=== PATIENT | female | born 1985 | race Caucasian/White ===

== ENCOUNTER 2023-11-18 08:45 | Outpatient (RCR) | payer BC, SELFPAY ==
--- NOTE | 2023-09-23 16:40 | PT.OPEX ---
PT [place] Outpatient Eval PT [facility] Outpatient Eval Start: 09/23/23 09:46 Freq: Status: Active Protocol: Document 09/18/23 07:45 AMS (Rec: 09/23/23 16:15 AMS [id number]) E-signed By Mimi Rios PT Physical Therapy Outpatient Evaluation Insurance Information Recert Due Date 11/17/23 Insurance Name Medicaid Medical Diagnosis Cervicalgia Treating Diagnosis Neck pain Thoracic pain Upper back/shoulder pain left and right Muscle weakness Referring CINTHIA Grace Subjective Subjective New patient visit. Pleasant 37-year-old female presents with approximately 1.5 years of left-sided neck, trapezius discomfort that is intermittent - experiences approximately 2 times per week , lasting for 20 minutes. This discomfort causes headaches and is unchanged over the last 1.5 years. Now, over the last month, she experiences similar symptoms on the right, but to a lesser degree. States that she also has some discomfort across her clavicles especially when lying on her side during sleep . Occasional numbness and muscle tension through the left arm. The numbness involves her small digit. Also comments - occasional chest discomfort that she believes may be related to anxiety. She also wonders if this neck discomfort is related to anxiety. She has brought this to the attention of her PCP. Involved in daily yoga, which can be difficult due to some loss in shoulder motion due to tension. No loss in shoulder strength. She is wondering about a pinched nerve. Treatment also includes occasional CBD oil and ibuprofen which provided mild relief. Heat does help. No past injury to her neck or upper extremities. -Onel Coleman, 08/21/23, confirmed by patient Patient is a 37-year-old female who presents to physical therapy with primary concern of chronic bilateral neck/upper back/clavicle pain. The left-sided neck pain started about 2 years ago gradually without injury, right more limited. It come and goes, but is very intense when it does come and will last for an hour or so a few times per week. Has occasional headaches. Pain is localized to the left > right side of her shoulder/base of neck and radiates toward her collar bone L > R and shooting up her neck. Describes weird pressure across collar bone. Holding up her head sometimes feels tiring. Intermittent N/T in left little finger, but this is just occasional. Thinks she has carpal tunnel, sometimes tingling in her R hand as well. Describes limited shoulder ROM with yoga at times and painless popping in the shoulder with movement . Pain characteristics: Sometimes shooting, bilateral upper back near base of neck, radiating toward collarbone; sometimes sharp vs. achey ( collar bone). At rest: 0/10. At worst: 8/10. 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 Does sometimes have intermittent dizziness. Imaging: AP, lateral views of the cervical spine ordered and preliminarily reviewed today. Images show no acute fractures, avulsions, or evidence of spondylolisthesis/ spondylosis. 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 There is in fact slight kyphosis starting at the C4 level. Maintained vertebral height, and patent foramens. -08/21/23, Onel Coleman PMHx: Ban's Social history/current exercise: Yoga for 25 min daily. Tries to walk short distances a few times per week . 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 IR to T6 bilaterally without pain. 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 Tenderness to palpation over bicipital groove on left, R mid-clavicle, and just superior to bicipital groove bilaterally. TTP over T1-T11. No TTP over C1-C7. Functional Test Performed & Score NDI: 10/50 = 20% Quick DASH: 25/100 = 25% Assessment Assessment/Impression Pt is a 37 -year-old female who presents with concerns of intermittent left > right upper trapezius pain and low severity and irritability. Signs and symptoms are likely indicating / consistent with upper trapezius pain. 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 Unable to reproduce occasional N/T into left 5th digit this visit; does not appear to be related to upper trap symptoms (pt noting history of possible carpal tunnel). Patient is appropriate for skilled physical therapy services to address the above deficits. Pt was agreeable with plan of care and goals established. 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 In 6-8 visits: Pt will demonstrate full and pain-free cervical rotation for improved ability to turn head while driving. Pt will report 50% decrease in pain symptoms over course of therapy and <2/10 pain with reaching. Pt will sleep soundly waking 0 -1 times per night for improved sleep quality. Pt will improve Quick DASH and NDI by 15% for significant improvement in symptoms. Coordination/Communication With Referral Source Treatment Plan/Direct Interventions Heat,Joint Mobilization,Manual Therapy,Neuromuscular Re-ed, Self-Care/Home Management, Therapeutic Activities, Therapeutic Exercises Frequency/Duration 1x/week for 6-8 visits Patient Will Be Discharged From Therapy Completion of LTG(s), Independent w/HEP, Independently Progressing Evaluation Billing Untimed Code Treatment Minutes 25 Complexity Low Certification Information Initial Certification Date 09/18/23 Ending Certification Date 11/17/23 Provider Signature Shows Agreement With POC & Medical Necessity Physician Signature & Date Requested Please Sign/Date Here Physician Comment/Change : Physician NPI Number #
== END 2024-03-17 23:59 | disposition home or self-care (01) ==
PROVIDERS: PCP Family Medicine; Visit Provider Physician Assistant Surgical
DX: M54.2 Cervicalgia (principal); M54.6 Pain in thoracic spine; M54.9 Dorsalgia, unspecified; M25.512 Pain in left shoulder; M25.511 Pain in right shoulder; M62.81 Muscle weakness (generalized); Z51.89 Encounter for other specified aftercare
CPT/HCPCS: 97110; 97140; 97161

== ENCOUNTER 2023-11-25 09:15 | Outpatient (RCR) | payer BC, SELFPAY ==
--- NOTE | 2023-09-18 12:34 | PT.OP2DDNX ---
PT [place] Outpatient 2nd Diagnosis Daily Note PT [facility] Outpatient 2nd Diag Daily Note Start: 09/18/23 07:47 Freq: Status: Active Protocol: Document 09/18/23 07:48 AMS (Rec: 09/18/23 12:33 AMS [id number]) E-signed By Mimi Rios, PT PT OP 2nd Diagnosis Daily Note Visit Information Note Type Daily Note,Re-Evaluation Visit Number 1 Insurance Information Recert Due Date 11/17/23 Insurance Name Medicaid Medical Diagnosis Cervicalgia Treating Diagnosis Neck pain Thoracic pain Upper back/shoulder pain left and right Muscle weakness Referring CINTHIA Grace Subjective Subjective New patient visit. Pleasant 37-year-old female presents with approximately 1.5 years of left-sided neck, trapezius discomfort that is intermittent - experiences approximately 2 times per week , lasting for 20 minutes. This discomfort causes headaches and is unchanged over the last 1.5 years. Now, over the last month, she experiences similar symptoms on the right, but to a lesser degree. States that she also has some discomfort across her clavicles especially when lying on her side during sleep . Occasional numbness and muscle tension through the left arm. The numbness involves her small digit. Also comments - occasional chest discomfort that she believes may be related to anxiety. She also wonders if this neck discomfort is related to anxiety. She has brought this to the attention of her PCP. Involved in daily yoga, which can be difficult due to some loss in shoulder motion due to tension. No loss in shoulder strength. She is wondering about a pinched nerve. Treatment also includes occasional CBD oil and ibuprofen which provided mild relief. Heat does help. No past injury to her neck or upper extremities. -Onel Coleman, 08/21/23, confirmed by patient Patient is a 37-year-old female who presents to physical therapy with primary concern of chronic bilateral neck/upper back/clavicle pain. The left-sided neck pain started about 2 years ago gradually without injury, right more limited. It come and goes, but is very intense when it does come and will last for an hour or so a few times per week. Has occasional headaches. Pain is localized to the left > right side of her shoulder/base of neck and radiates toward her collar bone L > R and shooting up her neck. Describes weird pressure across collar bone. Holding up her head sometimes feels tiring. Intermittent N/T in left little finger, but this is just occasional. Thinks she has carpal tunnel, sometimes tingling in her R hand as well. Describes limited shoulder ROM with yoga at times and painless popping in the shoulder with movement . Pain characteristics: Sometimes shooting, bilateral upper back near base of neck, radiating toward collarbone; sometimes sharp vs. achey ( collar bone). At rest: 0/10. At worst: 8/10. At current: 0/ 10 Aggravating factors: Raising her arm above her head, reaching, carrying, heavy peanut shaker, lying on her side, jumping when surprised (will feel shoot of pain), morning worse than evening, turning her head, holding her head up for long periods, driving Easing factors: heat, CBD oil, ibuprofen Previous treatments: none Current functional limitations : Raising her arm above her head, reaching, carrying, lifting weights, heavy peanut shaker, yoga ( downward dog, child's pose), lying on her side, turning her head, driving Red flags: Pt denies hand weakness, faintness, or vision changes. Does sometimes have intermittent dizziness. Imaging: AP, lateral views of the cervical spine ordered and preliminarily reviewed today. Images show no acute fractures, avulsions, or evidence of spondylolisthesis/ spondylosis. 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 There is in fact slight kyphosis starting at the C4 level. Maintained vertebral height, and patent foramens. -08/21/23, Onel Coleman PMHx: Ban's Social history/current exercise: Yoga for 25 min daily. Tries to walk short distances a few times per week . Goals: Decreased pain, improved ROM Home Exercise Home Exercise Compliance Compliant Home Exercise Reviewed Yes Objective Other/Pertinent Objective SPINAL ALIGNMENT/POSTURE: increased thoracic kyphosis, decreased cervical lordosis, forward head CERVICAL AROM (PROM) Flexion: WNL Extension: WNL Right Rotation: 75 deg (75) Left Rotation: 60 deg (75) Right sidebend: Mildly limited Left sidebend: WNL Repeated flexion/extension: no change in symptoms THORACIC ROM Did not assess SHOULDER AROM Full and pain-free. IR to T6 bilaterally without pain. 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 Tenderness to palpation over bicipital groove on left and just superior to bicipital groove bilaterally. TTP over T1-T11. No TTP over C1-C7. Functional Test Performed & Score NDI: 10/50 = 20% Quick DASH: 25/100 = 25% Treatment Precautions/Contraindications Ban's Patient Instructed in Risks/Benefits Yes Therapeutic Exercise Therapeutic Exercise Minutes (minutes) 15 Therapeutic Exercise: To Restore Education provided on findings Functional Status of examination, plan of care, frequency, duration and goals . Patient verbalizes understanding and agrees with plan of care. Patient instructed in initial home exercise program listed below with verbal and tactile cues provided for form. Patient demonstrates understanding with handout provided. Access Code: [email or web address] URL: [email or web address]/ Date: 09/18/2023 Prepared by: Mimi Rios Exercises - Cervical Retraction at Wall - 1 x daily - 7 x weekly - 2- 3 sets - 10 reps - Prone W Scapular Retraction - 1 x daily - 7 x weekly - 2- 3 sets - 10 reps - Seated Upper Trapezius Stretch - 1 x daily - 7 x weekly - 3 sets - 30-60 sec hold Manual Therapy Techniques Manual Therapy Minutes (minutes) 10 Manual Therapy Techniques Soft tissue mobilization to upper trap, paraspinals, and levator scapulae bilaterally to decrease tone and reduce pain. Positive response reported. Treatment Minutes Untimed Code Treatment Minutes 25 Timed Code Treatment Minutes 25 Total Treatment Time 50 Billing Units Manual Therapy Units 1 Therapeutic Exercise Units 1 Re-Evaluation Units 1 Assessment/Impression Assessment/Impression Pt is a 37 -year-old female who presents with concerns of intermittent left > right upper trapezius pain and low severity and irritability. Signs and symptoms are likely indicating / consistent with upper trapezius pain. On exam, patient also demonstrates notable objective findings including full and pain-free shoulder ROM, full and pain- free cervical ROM with exception of mildly decreased L rotation/R sidebending, normal neurological exam, pain with active shoulder elevation, increased tone of upper trap/paraspinals L > R, and decreased deep neck flexor /scapular strength, leading to difficulties with raising her arm above her head, reaching, carrying, lifting weights, heavy peanut shaker, yoga ( downward dog, child's pose), lying on her side, turning her head, driving. Unable to reproduce occasional N/T into left 5th digit this visit. Patient is appropriate for skilled physical therapy services to address the above deficits. Pt was agreeable with plan of care and goals established. Plan of Care Physical Therapy Goals In 2 visits: Pt will demonstrate consistent HEP compliance to ensure progress in reaching established goals during course of care. In 6-8 visits: Pt will demonstrate full and pain-free cervical rotation for improved ability to turn head while driving. Pt will report 50% decrease in pain symptoms over course of therapy and <2/10 pain with reaching. Pt will sleep soundly waking 0 -1 times per night for improved sleep quality. Pt will improve Quick DASH and NDI by 15% for significant improvement in symptoms. Daily Plan of Care Continue per POC Daily Plan of Care Comments Manual prn Upper/middle trap strengthening - progress Deep neck flexor strengthening Check thoracic ROM
== END 2024-03-24 23:59 | disposition home or self-care (01) ==
PROVIDERS: PCP Family Medicine; Visit Provider Podiatrist
DX: M72.2 Plantar fascial fibromatosis (principal); M24.571 Contracture, right ankle; Z51.89 Encounter for other specified aftercare
CPT/HCPCS: 97110; 97140; 97161; 97164

== ENCOUNTER 2024-05-17 09:07 | Outpatient (CLI) | payer BC, SELFPAY ==
--- NOTE | 2024-05-17 09:15 | CRLHL7_ITS ---
For Patients: As a result of the Cures Act, medical imaging exams and procedure reports are released immediately into your electronic medical record. You may view this report before your referring provider. If you have questions, please contact your health care provider. INDICATION: First trimester scan, establish dates. COMPARISON: None. TECHNIQUE: Real-time haq-scale imaging of the pelvis was performed. FINDINGS: Sonographic imaging demonstrates a single living intrauterine gestation. The embryo demonstrates a regular cardiac rate measuring 169 beats per minute. The embryo`s crown-rump length measurement of 3.4 cm corresponds to a gestational age of 10 weeks 2 days with a sonographic due date of 12/11/2024. There is a normal-appearing yolk sac. There are no gross abnormalities noted within the embryo at this early state of development. The gestational sac has a normal appearance. There is no evidence of a perigestational hemorrhage. The amount of fluid within the sac appears appropriate for gestational age. The cervix is closed. The myometrium appears normal. The ovaries are not visualized. There are no suspicious fluid collections noted in the cul-de-sac. IMPRESSION: Single living intrauterine with sonographic gestational age 10 weeks 2 days and sonographic due date of 12/11/2024. Dictated by Santi Hoskins MD @ 05/17/2024 10:20:21 AM (Electronically Signed)
== END 2024-05-17 09:08 | disposition home or self-care (01) ==
LOC: US 09:09
PROVIDERS: PCP Family Medicine; Visit Provider Midwife
DX: Z34.91 Encounter for supervision of normal pregnancy, unspecified, first trimester (principal); Z3A.10 10 weeks gestation of pregnancy
CPT/HCPCS: 76817; 84439; 84443; 86703; 86706; 86803; 86850; 86900; 86901; 87086; 87340

== ENCOUNTER 2024-05-17 10:13 | Outpatient (CLI) | payer BC, SELFPAY | END 2024-05-17 10:14 | disposition home or self-care (01) | PROVIDERS: PCP Family Medicine; Visit Provider Midwife | DX: Z34.91 Encounter for supervision of normal pregnancy, unspecified, first trimester (principal); Z3A.09 9 weeks gestation of pregnancy | CPT/HCPCS: 84439; 84443; 86592; 86703; 86704; 86706; 86762; 86787; 86803; 86850; 86900; 86901; 87086; 87340 ==

== ENCOUNTER 2024-05-18 10:47 | Outpatient (CLI) | payer BC, SELFPAY ==
--- NOTE | 2024-05-18 11:00 | CRLHL7_ITS ---
For Patients: As a result of the Century Cures Act, medical imaging exams and procedure reports are released immediately into your electronic medical record. You may view this report before your referring provider. If you have questions, please contact your health care provider. INDICATION: Nontoxic single thyroid nodule COMPARISON: none TECHNIQUE: Latham scale and color Doppler images were acquired of the thyroid gland. FINDINGS: Thyroid echotexture is heterogeneous. The right lobe measures 5.4 x 2.3 x 2.4 cm and the left lobe measures 4.5 x 1.8 x 1.7 cm in size. Isthmus measures 7 millimeters. Mostly solid slightly hyperechoic nodule inferior pole left thyroid lobe measures 6 x 9 x 8 millimeters, TR 3. Calcification within the right thyroid lobe measures 1 x 3 x 3 millimeters, incidental. Solid and cystic nodule right thyroid lobe measures 7 x 16 x 18 millimeters, TR 3. Solid hypoechoic nodule right thyroid lobe measures 5 x 7 x 8 millimeters, TR 4. The color Doppler images demonstrate increased vascularity. There is no evidence of cervical lymphadenopathy or parathyroid mass. IMPRESSION: Bilateral thyroid nodules. Follow-up in 1 year could be considered. No FNA indicated at this time. Dictated by Santi Hoskins MD @ 05/18/2024 12:10:09 PM (Electronically Signed)
== END 2024-05-18 10:48 | disposition home or self-care (01) ==
LOC: US 10:48
PROVIDERS: PCP Family Medicine; Visit Provider Midwife
DX: E04.1 Nontoxic single thyroid nodule (principal)
CPT/HCPCS: 76536

== ENCOUNTER 2024-06-22 16:06 | Outpatient (CLI) | payer BC, SELFPAY | END 2024-06-22 16:07 | disposition home or self-care (01) | LOC: NFLDREF 06-26 17:03 | PROVIDERS: PCP Family Medicine; Referring Provider Family Medicine; Visit Provider Advanced Practice Midwife | DX: Z20.828 Contact with and (suspected) exposure to other viral communicable diseases (principal) | CPT/HCPCS: 86747 ==

== ENCOUNTER 2024-07-07 15:36 | Outpatient (CLI) | payer BC, SELFPAY | END 2024-07-07 15:37 | disposition home or self-care (01) | LOC: NFLDREF 07-08 05:10 | PROVIDERS: PCP Family Medicine; Referring Provider Family Medicine; Visit Provider Advanced Practice Midwife | DX: Z34.82 Encounter for supervision of other normal pregnancy, second trimester (principal) | CPT/HCPCS: 84443 ==

== ENCOUNTER 2024-07-23 05:11 | Emergency (ER) | payer BC, SELFPAY ==
--- OUTSIDE RECORDS SUMMARY | 2024-07-23 05:13 | XMS_ITS | Clinical Summary ---
Author Organization [place] Address [address] [facility] [place] [address] Care Team Providers Care Osteopathic Neurologist Name Role Phone Kelsi George MD Primary Care Provider [phone] Inez Orosco DO Unavailable [phone] Mayra Recinos APRN MULTIMEDIA DEVELOPER Unavailable [phone] Allergies Active Allergy Reactions Criticality Noted Date Comments Amoxicillin-Pot Clavulanate 11/04/19 10 Amoxicillin-Pot Clavulanate Nausea and Vomiting 08/21/2015 Medications LEVOTHYROXINE SODIUM PO Take 100 mcg by mouth daily Dosage unknown Active cholecalciferol (VITAMIN D3) 125 mcg (5000 units) capsule Take by mouth daily Active Caldwell-3 Fatty Acids (OMEGA 3 PO) Take by mouth daily Active propranolol (INDERAL) 40 MG tablet Take 20 mg by mouth as needed 1 Active Digestive Aids Mixture (PAPAYA ENZYMES PO) Take by mouth daily Active MAGNESIUM PO Take by mouth daily Active UNABLE TO FIND MEDICATION NAME: Insta-Calm - gamma amniobutyric, L-theanine, huperzine A Active Probiotic Product (PROBIOTIC DAILY PO) Take by mouth daily Active UNABLE TO FIND MEDICATION NAME: mohit bond Active UNABLE TO FIND MEDICATION NAME: raspberry leaf tea Active Active Problems Problem Noted Date Diagnosed Date CARDIOVASCULAR SCREENING; LDL GOAL LESS THAN 160 05/20/2010 NO ACTIVE PROBLEMS Immunizations Name Administration Dates Next Due Flu, Unspecified 05/08/2011 HPV Quadrivalent 12/18/2011 HepA, Unspecified 05/27/2011 TD,PF 7+ (Tenivac) 03/21/2007 Typhoid, Unspecified Formulation 05/27/2011 Family History Medical History Relation Comments C.A.D. Father Hypertension Father Lipids Father Neurologic Disorder Father TBI Diabetes Maternal Grandmother Cancer - colorectal Mother dx age 53 Hypertension Mother Asthma No family hx of Breast Cancer No family hx of Cerebrovascular Disease No family hx of Relation Status Comments Father Alive Maternal Grandmother Mother (Age 53) colon cancer Sister Alive Social History Tobacco Use Types Packs/Day Years Used Date Smoking Tobacco: Never Smokeless Tobacco: Never Alcohol Use Standard Drinks/Week Comments No 0 (1 standard drink = 0.6 oz pur e alcohol) Adolescent Education Answer Date Record ed Getting School Help Needed Not on file 04/20 Comments No Sex and Gender Information Value Date Recorded Sex Assigned at Not on file Legal Sex Female 5:07 AM MEAT SMOKER Gender Identity Not on file Sexual Orientation Not on file 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 on file Not on file Not on file Last Filed Vital Signs Vital Sign Reading Time Taken Comments Blood Pressure 102/68 06/03/2022 10:27 AM MEAT SMOKER Pulse 68 06/03/2022 10:27 AM MEAT SMOKER Temperature 36.1 C (97 F) 06/22/2010 6:04 PM MEAT SMOKER Respiratory Rate 16 04/04/2010 1:28 PM CDT Oxygen Saturation 97% 06/03/2022 10:27 AM MEAT SMOKER Inhaled Oxygen Concentration - - Weight 98 kg (216 lb) 06/03/2022 10:27 AM MEAT SMOKER Height 167 cm (5' 5.75) 06/03/2022 10:27 AM MEAT SMOKER Body Mass Index 35.13 06/03/2022 10:27 AM MEAT SMOKER Plan of Treatment Health Maintenance Due Date Last Done Comments ADVANCE CARE PLANNING 1985 ANNUAL REVIEW OF HM ORDERS 1985 HIV SCREENING 2000 HEPATITIS C SCREENING 11/16/2003 HEPATITIS B IMMUNIZATION (1 of 3 - 19+ 3-dose series) 2004 YEARLY PREVENTIVE VISIT 04/04/2011 04/04/2010 HPV IMMUNIZATION (3 - 3-dose series) 03/11/2012 12/18/2011, 03/02/2009 DTAP/TDAP/TD IMMUNIZATION (5 - Td or Tdap) 04/20/2022 04/20/2012, 04/04/2012, 11/01/2007, Additional history exists TSH W/FREE T4 REFLEX 12/18/2022 12/18/2021, 12/18/2021, 08/13/2021, Additional history exists PHQ-2 (once per calendar year) 2023 COVID-19 Vaccine ( season) 2024 02/07/2021 INFLUENZA VACCINE (#1) 2024 05/08/2011 GLUCOSE 12/18/2024 12/18/2021, 11/03/2009 PAP 12/18/2024 12/18/2021, 11/20, 12/18/2021, Additional history exists RSV VACCINE (1 - 1-dose 75+ series) 2060 MENINGITIS IMMUNIZATION Aged Out No l onger eligible based on patient's age to complete this topic Pneumococcal Vaccine: Pediatrics (0 to 5 Years) and At-Risk Patients (6 to 49 Years) Aged Out No longer eligible based on patient's age to complete this topic RSV MONOCLONAL ANTIBODY Aged Out No l onger eligible based on patient's age to complete this topic Procedures Procedure Name Priority Date/Time Associated Diagnosis Comments PAP SMEAR - HIM PATIENT REPORTED Routine 12/18/2021 12:00 PM CDT GLUCOSE Routine 12/18/2021 12:00 AM CDT T4 FREE Routine 12/18/2021 12:00 AM CDT from Last 3 Months or Most Recently Relevant to Health Maintenance Results * PAP Smear - HIM Patient Reported (12/18/2021 12:00 PM CDT) PAP Smear - HIM Patient Reported Negative EXTERNAL LAB 12/18/2021 12:0 0 PM CDT Narrative EXTERNAL LAB - 12/18/2021 12:00 PM CDT [facility] PROGRESS NOTE us Patient Reported LABORATORY Final Result EXTERNAL LAB External Lab * T4 free (12/18/2021 12:00 AM CDT) Thyroxine Free (External) 1.0 0.8 - 1.8 ng/dL NON-INTERFACED (ONBASE SCANS) Blood 12/18/2021 Narrative [facility] - 12/18/2021 12:00 AM CDT Verified by Shemar Gloria on 02/03/2022. Provider Outside LAB - BLOOD ORDERABLES Edited [employer] CARMENEZE PFT NON-INTERFACED (ONBASE SCANS) * Glucose (12/18/2021 12:00 AM CDT) Glucose (External) 78 65 - 99 mg/dL NON-INTERFACED (ONBASE SCANS) Blood 12/18/2021 Narrative [facility] - 12/18/2021 12:00 AM CDT Verified by Shemar Gloria on 02/03/2022. Provider Outside LAB - BLOOD ORDERABLES Edited [employer] BETH PFT NON-INTERFACED (ONBASE SCANS) from Last 3 Months or Most Recently Relevant to Health Maintenance Insurance [place] Care Teams Osteopathic Neurologist Relationship Specialty Start Date End Date Kelsi George MD [address] [place] [address] [place] [address] PCP - General Family Practice 07/31/15 Inez Orosco DO [address] [place] [address] Cardiovascular Disease 02/01/22 Mayra Recinos APRN CNP [address] [id number] Nurse Practitioner Cardiovascular Disease 03/20/22
--- OUTSIDE RECORDS SUMMARY | 2024-07-23 05:13 | XMS_ITS | Clinical Summary ---
Author Organization [employer] [facility] Address [place], [place] [address] Care Team Providers Care Vice President Planning Name Role Phone Ruby Pickering DO Primary Care Provider [phone] Allergies Active Allergy Reactions Criticality Noted Date Comments Amoxicillin-Pot Clavulanate Vomiting,[place] And Vomiting 09/14/2008 Medications Cholecalciferol, Vitamin D3, 2,000 unit tablet Take 5,000 Units by mouth. Active Rylqs-3-WNQ-EPA-Fis h Oil 1,000 mg (120 mg-180 mg) cap Take 1 capsule by mouth. 0 0 Active loratadine (CLARITIN) 10 mg tabletIndications:N juvenal congestion TAKE 1 TABLET BY MOUTH EVERY DAY 90 Tablet 1 1 Active fluticasone (50 mcg per actuation) nasal solution (FLONASE)Indication s:Eustachian tube dysfunction, bilateral,Nasal congestion Inhale 1 [place] to both nostrils two times daily. 48 g 1 3 Active levothyroxine (SYNTHROID) 50 mcg tabletIndications:H ypothyroidism (acquired) Take 1 Tablet (50 mcg) by mouth before breakfast. 60 Tablet 1 4 Active propranoloL (INDERAL) 40 mg tabletIndications:A nxiety Take 1 Tablet (40 mg) by mouth two times daily. 20 Tablet 1 4 Active ondansetron (ZOFRAN ODT) 4 mg disintegrating tabletIndications:M otion sickness, initial encounter Place 1 Tablet (4 mg) on the tongue every 8 hours if needed for Nausea/Vomit ing. 15 Tablet 4 Active Active Problems Patient Care Coordination No te Formatting of this note migh t be different from the original. HIGH RISK hx hypothyroidism - no longer requiring medications Pre BMI 34, excessive weight gain (35 lbs by 38 weeks) POC HgbA1C at initial OB: 5.0 Thyroid lab panel each trimester Early 1 hour GCT declined due to feeling nausea 1 hr GCT in 26-28 weeks 141 and WNL 3 hour GCT Problem Noted Date Diagnosed Date Pap smear for cervical cancer screening 01/19/20 24 Overview (02/20/2024): 01/2009 ASCUS/HPV+ (age 23) 03/02/09 COLP:benign 11, 12, 13, 16 NIL 04/02/19 NIL/HPV negative 01/2024 NIL/HPV negative. Plan: Pap/HPV due 01/2029. Panic disorder 08/08/2021 Depression 08/08/2021 Vitamin D deficiency 07/31/2015 Social phobia 11/08/2008 Generalized anxiety disorder 10/25/2008 Major depressive disorder, single episode, moder ate 10/25/2008 Obesity (BMI 30.0-34.9) Diarrhea Family history of colon cancer in mother Estimated Date of Delivery Comme nts Yes 12/15/2024 Resolved Problems Problem Noted Date Diagnosed Date Resolved Date (normal spontaneous vaginal delivery) 11/23/2018 04/02/2019 Small for gestational age (SGA) 11/23/2018 04/02/2019 Single liveborn, born in hospital, delivered 9 04/02/2019 Meconium in amniotic fluid 11/23/2018 0 04/02/2019 Anemia in 10/21/2018 07/29/19 20 Supervision of high risk pre gnancy in third trimester 04/10/2018 04/02/2019 Chorioamnionitis 10/23/2012 05/10/2013 Normal delivery 10/23/2012 05/10/2013 Decreased movements, a ffecting management of mother, antepartum 09/18/2012 013 High-risk 08/19/2012 05/10/20 13 Supervision of other normal 03/26/2012 05/10/2013 Overview (10/01/2012): Hoping to go without epidural- changed her mind and wants one Wants to move around during labor Plan to do 1hour glucose test about 21 weeks and 28 weeks Chest pain seen in ER, reassuring work up 05/21/2012 ultrasound did not get good look at heart, can be follow up 06/30/12 :Level 2 ultrasound and echocardiogram reassuring - [facility] recommended follow up ultrasound for growth and LAM in 6 weeks - done 08/19/12 normal LAM, no further testing needed per [facility] 07/31/2012- sent to [facility] to rule out PTL Obesity 12/18/2011 07/04/2016 Acute sinusitis, unspecified 11/11/2011 11/18/2013 Papanicolaou smear of cervix with atypical squamous cells cannot exclude high grade squamous intraepithelial lesion (ASC-H) 03/02/2009 04/13/2019 Overview (04/10/2018): [place] 2008. Plan to repeat 2 paps every 6 months. First repeat pap was 11/2010 NIL. Needs repeat pap 6 months per previous plan. Due 05/2011. Luci Pérez RN............... 12/05/2010 4:35 PM Normal pap smears since 2010 Anxiety 11/18/2013 Hypothyroidism (acquired) NST (non-stress test) reacti ve on surveillance 11/17/2018 Decreased movements in third trimester 11/17/2018 Encounters Date Type Department Care Team Description 07/02/2024 12:35 PM PLANER OFF BEARER Office Visit [facility] [address] [place] [address] Jackie Baird PA Ear Problem 07/02/2024 Travel 04/23/2024 1:30 PM CDT Orders Only [facility] [address] [place] [address] Lab, [facility] (/) 04/23/2024 Travel from Last 3 Months Immunizations Name Administration Dates Next Due Hepatitis A (Adult) 05/27/2011 Hepatitis A, Unspecified 05/27/2011 Human Papilloma Virus Vaccine 12/18/2011, 009 Influenza Virus, Unspecified 05/08/2011,05/08/20 11 Influenza, IIV3 (Age 6-35 mos) 05/08/2011 Influenza, IIV3 (Age >=3 years) 05/08/2011 Td (Age >=7 Years) 11/01/2007 Td, Preservative Free (age >= 7 Years) 7 Tdap 04/20/2012,04/04/2012 Tetanus Toxoid 11/01/2007 Typhoid (injectable) 05/27/2011 Typhoid, Unspecified 05/27/2011 Family History Medical History Relation Name Comments Alcoholism Father Alzheimer's disease Father Arthritis Father Heart Disease Father bypass surgery Hyperlipidemia Father Hypertension Father Lung disease Father Other Father Traumatic brain injury Rheum arthritis Father Lymphoma Maternal Grandfather Cancer-breast Maternal Grandmother Dementia Maternal Grandmother Diabetes Maternal Grandmother Cancer-colon Mother mo x 53yo w/in 1 y r of dx Hypertension Mother mo Lung cancer Paternal Grandfather Heart Disease Paternal Grandmother Hyperlipidemia Sister defects No Family History Miscarriages / Stillbirths No Family History Skin cancer No Family History Unexplained No Family History Relation Name Status Comments Father [place] Maternal Grandfather Maternal Grandmother diabete s Mother mo Paternal Grandfather Paternal Grandmother Sister Alive [place], [place] Social History Tobacco Use Types Packs/Day Years Used Date Smoking Tobacco: Never Smokeless Tobacco: Never Tobacco Cessation:Counseling Given: No Alcohol Use Standard Drinks/Week Comments No 0 (1 standard drink = 0.6 oz pur e alcohol) [facility] Utilities Answer Date Recorded Do you have trouble paying f or utilities (for example, heat, electricity, water, phone)? Yes 01/12/2024 PHQ-2 Answer Date Recorded PHQ-2 TOTAL SCORE 1 08/08/2021 Social Connections Answer Date Recorded Do you often feel lonely or isolated from those around you? 0 01/12/2024 Financial Resource Strain Answer Date R ecorded Difficulty of Paying Living Expenses 3 01/12/2024 Difficulty of Paying Living Expenses Not on file 01/12/2024 Food Insecurity Answer Date Recorded Do you worry your food will run out before you are able to buy more? 1 01/12/2024 Transportation Needs Answer Date Record ed Does lack of transportation keep you from medica l appointments? 1 01/12/2024 Does lack of transportation keep you from work, meetings or getting things that you need? 1 01/12/2024 Housing Stability Answer Date Recorded What is your housing situation today? 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 SCN x 48 hours 2018 Term 40w 0d 0h 06m 2.77 kg (6 lb 1.7 oz) F Vag Epidur al Livin g 9 9 SOLTA NI,PE NDING Complications:None Delivery Location:[facility] [id number] [place] [address]) Current Last Filed Vital Signs Vital Sign Reading Time Taken Comments Blood Pressure 118/80 07/02/2024 12:32 PM PLANER OFF BEARER Pulse 78 07/02/2024 12:32 PM PLANER OFF BEARER Temperature 37.1 C (98.8 F) 09/11/2023 12:43 PM PLANER OFF BEARER Respiratory Rate 16 07/02/2024 12:3 2 PM PLANER OFF BEARER Oxygen Saturation 99% 07/02/2024 12: 32 PM PLANER OFF BEARER Inhaled Oxygen Concentration - - Weight 105.3 kg (232 lb 3.2 oz) 024 12:32 PM PLANER OFF BEARER Height 167.5 cm (5' 5.95) 07/02/2024 1 2:32 PM PLANER OFF BEARER Body Mass Index 37.54 07/02/2024 12:32 PM PLANER OFF BEARER Plan of Treatment Health Maintenance Due Date Last Done Comments Hepatitis C screening for age 18-79 11/16/2003 Depression screening for age 12+ 08/08/2022 08/08/2021, 11/23/2020, 11/20/2020, Additional history exists Tetanus booster 08/27/2022 08/27/2012, 07/2011, 04/04/2012, Additional history exists COVID-19 vaccine series ( season) 2024 02/07/2021 Influenza for age 9-49 03/21/2024 1, 05/08/2011, 05/08/2011 BMI (ht and wt on same day) for age 18+ 07/02/2025 07/02/2024, 02/11/2024, 09/11/2023, Additional history exists Pap test for age 21-65 02/10/2029 , 02/11/2024, 04/02/2019, Additional history exists Tdap Completed 04/20/2012, 04/04/2012 HIV for age 15-65 Completed 04/10/2018, 02/19/2012 Pneumococcal series for age 6-49 Aged Out No longer eligible based on patient's age to complete this topic RSV vaccine for adults or (No Doses Required) Completed Procedures Procedure Name Priority Date/Time Associated Diagnosis Comments HPV HIGH RISK Routine 02/11/2024 4:18 PM CDT Cervical cancer screening ANTI HIV 1/2 Routine 04/10/2018 4:14 PM CDT Supervision of high risk in first trimester from Last 3 Months or Most Recently Relevant to Health Maintenance Results * HPV HIGH RISK (02/11/2024 4:18 PM CDT) TYPE 16 Negative Negative 02/16/2024 5:32 PM CDT [facility] TRAL LABORATORY TYPE 18 Negative Negative 02/16/2024 5:32 PM CDT [facility] OTHER HIGH RISK TYPES Negative Negative 02/16/2024 5:32 PM CDT [facility] LABORATORY Other (Cervical) Non-Blood / Unknown 02/11/2024 4:18 PM CDT 02/12/2024 3:06 PM CDT Narrative [facility] - 02/16/2024 5:32 PM CDT HPV types 16, 18, 31, 33, 35, 39, 45, 51, 52, 56, 58, 59, 66 and 68 DNA were undetectable or below the pre-set threshold. Methodology: Manuelito Edmundo 4800 HPV Test us Ruby Pickering DO MICROBIOLOGY Final Result [facility] [address] [place] [address], * ANTI HIV 1/2 (04/10/2018 4:14 PM CDT) HIV-1/HIV-2 ANTIBODY Non-Reacti ve Non-Reacti ve 04/10/2018 6:26 PM CDT [facility] Comment:HIV-1 p24 and HIV-1/ HIV-2 Ab not detected. Blood BLOOD SPECIMEN / Unknown Venipuncture / Unknown 04/10/2018 4:14 PM CDT 04/10/2018 4:14 PM CDT us Katia LEWISM SEND OUTS Final Re sult [facility] [address] [place] [address], from Last 3 Months or Most Recently Relevant to Health Maintenance Insurance [facility]UE [facility] [place] Advance Directives * Full Code (Latest Code Status on File) Date Activated Date Inactivated Comments 11/23/2018 3:30 AM 11/24/2018 4:26 PM * Full Code Date Activated Date Inactivated Comments 10/23/2012 3:27 AM 10/25/2012 4:24 PM * Full Code Date Activated Date Inactivated Comments 10/22/2012 12:44 PM 10/23/2012 3:25 AM * Full Code Date Activated Date Inactivated Comments 10/22/2012 9:31 AM 10/22/2012 12:20 PM * Full Code Date Activated Date Inactivated Comments 10/20/2012 2:10 PM 10/20/2012 8:15 PM Care Teams Vice President Planning Relationship Specialty Start Date End Date Ruby [place] [address] [place] [address] PCP - General Family Practice 02/11/24
--- OUTSIDE RECORDS SUMMARY | 2024-07-23 05:13 | XMS_ITS | Continuity of Care Document ---
Author Name [facility]IN [facility] Address Unknown Organization Unknown Address Unknown Procedures FILTER APPLIED:Only known Procedures with Onset Date within the last 5 years Procedure Date Procedure Provider Additional Inform ation Status MANUAL THERAPY 1/> REGIONS (84708) Completed THERAPEUTIC EXERCISES (39434) Completed PT EVAL LOW COMPLEX 20 MIN (94612) Completed MANUAL THERAPY 1/> REGIONS (31911) Completed THERAPEUTIC EXERCISES (62972) Completed PT EVAL LOW COMPLEX 20 MIN (87570) Completed Encounters FILTER APPLIED:Only known Encounters with Admission Date within the last 5 years Encounter Location Admission Discharge Billing Code Sandwich Wrapper A [facility] Out[facility]
--- OUTSIDE RECORDS SUMMARY | 2024-07-23 05:14 | XMS_ITS | Referral Summary ---
Author Organization [place] Address [address] [facility] [place] [address] Care Team Providers Care Spring Floor Service Worker Name Role Phone Kelsi George MD Primary Care Provider [phone] Inez Orosco DO Unavailable [phone] Mayra Recinos APRN FOOT ROENTGENOLOGIST Unavailable [phone] Allergies Active Allergy Reactions Criticality Noted Date Comments Amoxicillin-Pot Clavulanate 11/04/19 10 Amoxicillin-Pot Clavulanate Nausea and Vomiting 08/21/2015 Medications LEVOTHYROXINE SODIUM PO Take 100 mcg by mouth daily Dosage unknown Active cholecalciferol (VITAMIN D3) 125 mcg (5000 units) capsule Take by mouth daily Active [place]-3 Fatty Acids (OMEGA 3 PO) Take by [...] 7+ (Tenivac) 03/21/2007 Typhoid, Unspecified Formulation 05/27/2011 Social History Tobacco Use Types Packs/Day Years [...] on file Legal Sex Female 5:07 AM CORDWOOD CUTTER Gender Identity Not on file Sexual Orientation Not on file 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 Not on file Not on file Last Filed Vital Signs Vital Sign Reading Time Taken Comments Blood Pressure 102/68 06/03/2022 10:27 AM CORDWOOD CUTTER Pulse 68 06/03/2022 10:27 AM CORDWOOD CUTTER Temperature 36.1 C (97 F) 06/22/2010 6:04 PM CORDWOOD CUTTER Respiratory Rate 16 04/04/2010 1:28 PM CDT Oxygen Saturation 97% 06/03/2022 10:27 AM CORDWOOD CUTTER Inhaled Oxygen Concentration - - Weight 98 kg (216 lb) 06/03/2022 10:27 AM CORDWOOD CUTTER Height 167 cm (5' 5.75) 06/03/2022 10:27 AM CORDWOOD CUTTER Body Mass Index 35.13 06/03/2022 10:27 AM CORDWOOD CUTTER Plan of Treatment Not on file Procedures Procedure Name Priority Date/Time Associated Diagnosis [...] - 12/18/2021 12:00 PM CDT [facility] FAMILY PHYSICIANS PROGRESS NOTE us Patient Reported LABORATORY Final Result EXTERNAL LAB External Lab * T4 free (12/18/2021 12:00 AM CDT) Thyroxine Free (External) 1.0 0.8 - 1.8 ng/dL NON-INTERFACED (ONBASE SCANS) Blood 12/18/2021 Narrative [facility] - 12/18/2021 12:00 AM CDT Verified by Shemar Gloria on 02/03/2022. Provider Outside LAB - BLOOD ORDERABLES Edited R esult - Final Performing Organization Address City/[facility] Co de Phone Number B[facility] PFT NON-INTERFACED (ONBASE SCANS) * Glucose (12/18/2021 12:00 AM CDT) Glucose (External) 78 65 - 99 mg/dL NON-INTERFACED (ONBASE SCANS) Blood 12/18/2021 Narrative [facility] - 12/18/2021 12:00 AM CDT Verified by Shemar Gloria on 02/03/2022. Provider Outside LAB - BLOOD ORDERABLES Edited R esult - Final Performing Organization Address City/[facility] Co de Phone Number [facility] PFT NON-INTERFACED (ONBASE SCANS) from Last 3 Months or Most Recently Relevant to Health Maintenance Insurance [facility] [place] Care Teams Spring Floor Service Worker Relationship Specialty Start Date End Date Kelsi George MD [address] [place] [address] PCP - General Family Practice 07/31/15 Inez Orosco DO [address] [place] [address] Cardiovascular Disease 02/01/22 Mayra Recinos APRN FOOT ROENTGENOLOGIST [address] [id number] Nurse Practitioner Cardiovascular Disease 03/20/22
--- OUTSIDE RECORDS SUMMARY | 2024-07-23 05:14 | XMS_ITS | Encounter Summary ---
Author Organization [place] Address [address] [place] [address] Care Team Providers Care Workday Financials Consultant Name Role Phone Kelsi George MD Primary Care Provider [phone] Inez Orosco DO Unavailable [phone] Inez Orosco DO Unavailable [phone] Mayra Recinos APRN ASSISTED SALES REPRESENTATIVE Unavailable [phone] Mayra Recinos APRN ASSISTED SALES REPRESENTATIVE Unavailable [phone] Inez Orosco DO Unavailable [phone] Mayra Recinos APRN ASSISTED SALES REPRESENTATIVE Unavailable [phone] Reason for Visit * Reason Onset Date Comments Zio Monitor concern 02/18/2022 Encounter Details Date Type Department Care Team (Late st Contact Info) Description 02/18/2022 Telephone [facility] Heart [facility] [address] [place] [address] Inez Orosco DO [address] [place] [address] Zio Monitor concern Social History Tobacco Use Types Packs/Day Years Used Date Smoking Tobacco: Never Smokeless Tobacco: Never Alcohol Use Standard Drinks/Week Comments No 0 (1 standard drink = 0.6 oz pur e alcohol) Comments No Sex and Gender Information Value Date Recorded Sex Assigned at Not on file 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 No / Unsure 02/15/2022 12:56 PM CDT documented as of this encounter Miscellaneous Notes * Telephone Encounter - Lilliam Carrasco - 02/18/2022 1:09 PM CDT Health Call Center Phone Message May a detailed message be left on voicemail: yes Reason for Call: Other: The patient had a Zio Monitor placed on Thursday 02/15 and it fell off, she issupposed to wear it for 2 weeks, please call pt to inform her what to do Action Taken: Other: Cardiology Travel Screening: Not Applicable documented in this encounter Plan of Treatment Not on file documented as of this encounter Visit Diagnoses Not on filedocumented in this encounter Care Teams Workday Financials Consultant Relationship Specialty Start Date End Date Kelsi George MD [address] [place] [address] PCP - General Family Practice 07/31/15 Inez Orosco DO [address] [place] [address] Cardiovascular Disease 02/01/22 Inez Orosco DO [address] [place] [address] Assigned Heart and Vascular Provider 02/09/22 06/07/22 Mayra Recinos APRN ASSISTED SALES REPRESENTATIVE [address] [address] Nurse Practitioner Cardiovascular Disease 03/20/22 Mayra Recinos APRN ASSISTED SALES REPRESENTATIVE [address] [id number] Assigned Heart and Vascular Provider 06/08/22 11/15/22 Inez Orosco DO [address] [place] [address] Assigned Heart and Vascular Provider 11/16/22 11/22/22 Mayra Recinos APRN ASSISTED SALES REPRESENTATIVE [address] [id number] Assigned Heart and Vascular Provider 11/23/22 12/10/23 documented as of this encounter
--- OUTSIDE RECORDS SUMMARY | 2024-07-23 05:14 | XMS_ITS | Clinical Summary ---
[facility] Address [address] [place] [address] Care Team Providers Care Hospital Admissions Clerk Name Role Phone No Primary/Referring, Phy Primary Care Provider Unavailable Source Comments You are receiving this document as you are listed as the primary care provider,follow-up provider, or the patient has been referred to you for consultation.This is in compliance with the Medicare and[facility] EHR Incentive Program,which states Providers who transition their patient to another setting of careor provider of care or refers their patient to another provider of care shouldprovide summary care record for each transition of care or referral. [place] Allergies Active Allergy Reactions Criticality Noted Date Comments Amoxicillin-Pot Clavulanate Nausea And Vomiting 09/14/2008 Medications Medication Sig Dispensed Refills Start Date End Date Status levothyroxine (SYNTHROID) 75 MCG tablet Take 75 mcg by mouth daily. 07/05/2016 Active multivitamin (THERAGRAN) tablet Take 1 Tab by mouth daily. 10/24/2015 Active cholecalciferol (VITAMIND3) 2000 UNITS tablet Take 5,000 Units by mouth daily. Active Cyanocobalamin (VITAMIN B-12) 1000 MCG/15ML LIQD Take 1,000 mcg by mouth daily. 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 May repeat one tablet after 2 hours if headache recurs. 9 Tab 3 04/09/2017 Active fluticasone (FLONASE) 50 MCG/ACT nasal solutionIndications:Se asonal allergic rhinitis, unspecified chronicity, unspecified trigger Place 2 Sprays into both nostrils daily at bedtime. 16 g 3 04/09/2017 Active Active Problems Problem Noted Date Diagnosed Date Hypothyroidism (acquired) 04/09/2017 Obesity (BMI 30.0-34.9) 04/09/2017 Vitamin D deficiency 07/31/2015 Anxiety 08/22/2014 Papanicolaou smear of cervix with atypical squamous cells cannot exclude high grade squamous intraepithelial lesion (ASC-H) 03/02/2009 Overview (04/09/2017): Overview: [place] 2008. Plan to repeat 2 paps every 6 months. First repeat pap was 11/2010 NIL. Needs repeat pap 6 months per previous plan. Due 05/2011. Luci Pérez RN............... 12/05/2010 4:35 PM Major depressive disorder, single episode, moder ate 10/25/2008 Immunizations Name Administration Dates Next Due Tdap 04/04/2012 Social History Tobacco Use Types Packs/Day Years Used Date Smoking Tobacco: Never Assessed Sex and Gender Information Value Date Recorded Sex Assigned at Not on file Gender Identity Not on file Sexual Orientation Not on file Last Filed Vital Signs Vital Sign Reading Time Taken Comments Blood Pressure 129/78 11/20/2020 2:23 AM CDT Pulse 72 11/20/2020 2:23 AM CDT Temperature 37.2 C (98.9 F) 11/20/2020 2:23 AM CDT Respiratory Rate 18 11/20/2020 2:23 AM CDT Oxygen Saturation 98% 11/20/2020 2:23 AM CDT Inhaled Oxygen Concentration - - Weight 96.2 kg (212 lb) 04/09/2017 3:28 PM CDT Height 167 cm (5' 5.75) 04/09/2017 3:28 PM CDT Body Mass Index 34.48 04/09/2017 3:28 PM CDT Plan of Treatment Health Maintenance Due Date Last Done Comments Cervical Cancer Screening Due 1985 Hep C Screening (Preventive Services) 1985 HIV Screening (Preventive Services) 2001 Adult Preventive Visit 11/16/2003 HepB (1) 2004 HPV Vaccine (3 - 3-dose series) 03/11/2012 12/18/2011, 03/02/2009 DTaP/Tdap/Td (3 - Tdap) 04/20/2022 04/20/20 12, 04/04/2012, 11/01/2007 COVID-19 Vaccine (2023-2 5 season) 2024 Influenza (#1) 2024 05/08/2011, 05/08/2011 Zoster/Shingles (1 of 2) 11/16/2035 HepA Aged Out 05/27/2011 No longer eligi ble based on patient's age to complete this topic Hib Aged Out No longer eligi ble based on patient's age to complete this topic IPV (Polio) Aged Out No longer eligi ble based on patient's age to complete this topic MCV4 Aged Out No longer eligi ble based on patient's age to complete this topic Pneumococcal Aged Out No longer eligi ble based on patient's age to complete this topic Care Teams Hospital Admissions Clerk Relationship Specialty Start Date End Date No Primary/Referring, Adia PCP - General 04/07/17
--- OUTSIDE RECORDS SUMMARY | 2024-07-23 05:14 | XMS_ITS | Encounter Summary ---
Author Organization [place] Address [address] [place] [address] Care Team Providers Care Plodder Operator Name Role Phone Kelsi George MD Primary Care Provider [phone] Inez Orosco DO Unavailable [phone] Inez Orosco DO Unavailable [phone] Mayra Recinos APRN TESTER WAFER SUBSTRATE Unavailable [phone] Mayra Recinos APRN TESTER WAFER SUBSTRATE Unavailable [phone] Inez Orosco DO Unavailable [phone] Mayra Recinos APRN TESTER WAFER SUBSTRATE Unavailable [phone] Encounter Details Date Type Department Care Team (Late st Contact Info) Description 08/13/2021 External Order Results [facility] [address] [place] [address] Outside, Provider Social History Tobacco Use Types Packs/Day Years Used Date Smoking Tobacco: Never Alcohol Use Standard Drinks/Week Comments No 0 (1 standard drink = 0.6 oz pur e alcohol) Comments No Sex and Gender Information Value Date Recorded Sex Assigned at Not on file 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 Gender Identity Not on file Sexual Orientation Not on file 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 us Provider Outside LAB - BLOOD ORDERABLES Edited R esult - Final HUKatelynn PFLaura NON-INTERFACED (ONBASE SCANS) documented in this encounter Visit Diagnoses Not on filedocumented in this encounter Care Teams Plodder Operator Relationship Specialty Start Date End Date Kelsi George MD [address] [place] [address] PCP - General Family Practice 07/31/15 Inez Orosco DO [address] [place] [address] Cardiovascular Disease 02/01/22 Inez Orosco DO [address] [place] [address] Assigned Heart and Vascular Provider 02/09/22 06/07/22 Mayra Recinos APRN TESTER WAFER SUBSTRATE [address] [id number] Nurse Practitioner Cardiovascular Disease 03/20/22 Mayra Recinos APRN TESTER WAFER SUBSTRATE [address] [address] Assigned Heart and Vascular Provider 06/08/22 11/15/22 Inez Orosco DO [address] [place] [address] Assigned Heart and Vascular Provider 11/16/22 11/22/22 Mayra Recinos APRN [facility] [address] [address] Assigned Heart and Vascular Provider 11/23/22 12/10/23 documented as of this encounter
--- OUTSIDE RECORDS SUMMARY | 2024-07-23 05:14 | XMS_ITS | Encounter Summary ---
Author Organization [place] Address [address] [facility] [place] [address] Care Team Providers Care Coil Shaper Name Role Phone Kelsi George MD Primary Care Provider [phone] Inez Orosco DO Unavailable [phone] Inez Orosco DO Unavailable [phone] Mayra Recinos APRN DIE POLISHER Unavailable [phone] Mayra Recinos APRN DIE POLISHER Unavailable [phone] Inez Orosco DO Unavailable [phone] Mayra Recinos APRN DIE POLISHER Unavailable [phone] Encounter Details Date Type Department Care Team (Late st Contact Info) Description 12/18/2021 External Order Results [facility] [address] [place] [address] Outside, Provider Social History Tobacco Use Types Packs/Day Years Used Date Smoking Tobacco: Never Alcohol Use Standard Drinks/Week Comments No 0 (1 standard drink = 0.6 oz pur e alcohol) Comments No Sex and Gender Information Value Date Recorded Sex Assigned at Not on file Legal Sex Female 5:07 AM [employer]COMM[employer] MARKETING MANAGER Gender Identity Not on file Sexual Orientation Not on file 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 Not on file Not on file Not on file documented as of this encounter Plan of Treatment Not on file documented as of this encounter Procedures Procedure Name Priority Date/Time Associated Diagnosis Comments EXTERNAL LAB RESULTS Routine 12/18/2021 12:00 AM CDT TSH Routine 12/18/2021 12:00 AM CDT T4 FREE Routine 12/18/2021 12:00 AM CDT LIPID PROFILE Routine 12/18/2021 12:00 AM CDT T3 FREE Routine 12/18/2021 12:00 AM CDT VITAMIN B12 Routine 12/18/2021 12:00 AM CDT GLUCOSE Routine 12/18/2021 12:00 AM CDT EXTERNAL LAB RESULTS Routine 10/11/2021 12:00 AM CDT THYROID PEROXIDASE ANTIBODY Routine 10/11/2021 12:00 AM CDT FOLATE Routine 10/11/2021 12:00 AM CDT ANTI THYROGLOBULIN ANTIBODY Routine 10/11/2021 12:00 AM CDT VITAMIN B12 Routine 10/11/2021 12:00 AM CDT CBC WITH PLATELETS & DIFFERENTIAL Routine 08/13/2021 12:00 AM ECOMMERCE MARKETING MANAGER EXTERNAL LAB RESULTS Routine 08/13/2021 12:00 AM ECOMMERCE MARKETING MANAGER TSH Routine 08/13/2021 12:00 AM ECOMMERCE MARKETING MANAGER T4 FREE Routine 08/13/2021 12:00 AM ECOMMERCE MARKETING MANAGER T3 FREE Routine 08/13/2021 12:00 AM ECOMMERCE MARKETING MANAGER FOLATE Routine 08/13/2021 12:00 AM ECOMMERCE MARKETING MANAGER COMPREHENSIVE METABOLIC PANEL Routine 08/13/2021 12:00 AM ECOMMERCE MARKETING MANAGER VITAMIN B12 Routine 08/13/2021 12:00 AM ECOMMERCE MARKETING MANAGER TSH Routine 05/15/2021 12:00 AM CDT T4 FREE Routine 05/15/2021 12:00 AM CDT LIPID PROFILE Routine 05/15/2021 12:00 AM CDT T3 FREE Routine 05/15/2021 12:00 AM CDT documented in this encounter Results * External Lab Results (12/18/2021 12:00 AM CDT) Scan Lab Results (External) Not Detected Not Detected NON-INTERFAC ED (ONBASE SCANS) Comment:HPV mRNA E6/E7 12/18/2021 Narrative BREEZE PFT - 12/18/2021 12:00 AM CDT Verified by Shemar Gloria on 02/03/2022. Verified by Shemar Gloria on 02/03/2022. us Provider Outside LABORATORY Edited Result - Final BREEZE PFT NON-INTERFACED (ONBASE SCANS) * Vitamin B12 (12/18/2021 12:00 AM CDT) Vitamin B12 (External) 471 200 - 1,100 pg/mL NON-INTERFACED (ONBASE SCANS) Blood 12/18/2021 Narrative BREEZE PFT - 12/18/2021 12:00 AM CDT Verified by Shemar Gloria on 02/03/2022. us Provider Outside LAB - BLOOD ORDERABLES Edited R esult - Final BREEZE PFT NON-INTERFACED (ONBASE SCANS) * (ABNORMAL) TSH (12/18/2021 12:00 AM CDT) TSH (External) 6.76(H) mIU/L NON-I NTERFACED (ONBASE SCANS) Blood 12/18/2021 Narrative [facility]REEZE PFT - 12/18/2021 12:00 AM CDT Verified by Shemar Gloria on 02/03/2022. Provider Outside LAB - BLOOD ORDERABLES Edited Bag [employer] BREEZE PFT NON-INTERFACED (ONBASE SCANS) * T4 free (12/18/2021 12:00 AM CDT) Pathologist [facility] Thyroxine Free (External) 1.0 0.8 - 1.8 ng/dL NON-INTERFACED (ONBASE SCANS) Blood 12/18/2021 Narrative BREEZE PFT - 12/18/2021 12:00 AM CDT Verified by Shemar Gloria on 02/03/2022. Provider Outside LAB - BLOOD ORDERABLES Edited [employer] Performing Organization Address [facility] Co de Phone Number BREEZE PFT NON-INTERFACED (ONBASE SCANS) * T3 Free (12/18/2021 12:00 AM CDT) Pathologist [facility] T3 Free (External) 2.7 2.3 - 4.2 pg/mL NON-INTERFACED (ONBASE SCANS) Blood 12/18/2021 Narrative [facility]REEZE PFT - 12/18/2021 12:00 AM CDT Verified by Shemar Gloria on 02/03/2022. Provider Outside LAB - BLOOD ORDERABLES Edited Bag [employer] Performing Organization Address City/[facility]/ZIP Co de Phone Number BREEZE PFT NON-INTERFACED (ONBASE SCANS) * (ABNORMAL) Lipid Profile (12/18/2021 12:00 AM CDT) Triglycerides (External) 86 <150 mg/mL NON-INTERFACE D (ONBASE SCANS) Cholesterol (External) 131 <200 mg/mL NON-INTERFACE D (ONBASE SCANS) HDL Cholesterol (External) 40(L) >=50 mg/mL NON-INTERFACE D (ONBASE SCANS) LDL-Cholesterol (External) 74 mg/mL NON-INTERFACE D (ONBASE SCANS) Blood 12/18/2021 Narrative BREEZE PFT - 12/18/2021 12:00 AM CDT Verified by Shemar Gloria on 02/03/2022. us Provider Outside LAB - BLOOD ORDERABLES Edited R esult - Final BREEZE PFT NON-INTERFACED (ONBASE SCANS) * Glucose (12/18/2021 12:00 AM CDT) Glucose (External) 78 65 - 99 mg/dL NON-INTERFACED (ONBASE SCANS) Blood 12/18/2021 Narrative BREEZE PFT - 12/18/2021 12:00 AM CDT Verified by Shemar Gloria on 02/03/2022. us Provider Outside LAB - BLOOD ORDERABLES Edited R esult - Final Performing Organization Address [facility]/ZIP Co de Phone Number BREEZE PFT NON-INTERFACED (ONBASE SCANS) * External Lab Results (10/11/2021 12:00 AM CDT) Scan Lab Results (External) 9 8 - 25 ng/dL NON-INTERFACED (ONBASE SCANS) Comment:T3 REVERSE, LC/MS/MS 10/11/2021 Narrative BREEZE PFT - 10/11/2021 12:00 AM CDT Verified by Shemar Gloria on 02/03/2022. us Provider Outside LABORATORY Edited Result - Final BREEZE PFT NON-INTERFACED (ONBASE SCANS) * (ABNORMAL) Anti thyroglobulin antibody (10/11/2021 12:00 AM CDT) Thyroglobulin Antibody (External) 754(H) <=1 IU/mL NON-INTERFACE D (ONBASE SCANS) Blood 10/11/2021 Narrative BREEZE PFT - 10/11/2021 12:00 AM CDT Verified by Shemar Gloria on 02/03/2022. Provider Outside LAB - BLOOD ORDERABLES Edited R [employer] Final BREEZE PFT NON-INTERFACED (ONBASE SCANS) * (ABNORMAL) Thyroid peroxidase antibody (10/11/2021 12:00 AM CDT) Thyroid Peroxidase Antibody (External) 153(H) <9 IU/mL NON-INTERFACED (ONBASE SCANS) Blood 10/11/2021 Narrative [facility]REEZE PFT - 10/11/2021 12:00 AM CDT Verified by Shemar Gloria on 02/03/2022. Provider Outside LAB - BLOOD ORDERABLES Edited [employer] BREEZE PFT NON-INTERFACED (ONBASE SCANS) * Vitamin B12 (10/11/2021 12:00 AM CDT) Vitamin B12 (External) 604 200 - 1,100 pg/mL NON-INTERFACED (ONBASE SCANS) Blood 10/11/2021 Narrative [facility]ZE PFT - 10/11/2021 12:00 AM CDT Verified by Shemar Gloria on 02/03/2022. Provider Outside LAB - BLOOD ORDERABLES Edited R [employer] BREEZE PFT NON-INTERFACED (ONBASE SCANS) * Folate (10/11/2021 12:00 AM CDT) Folic Acid Serum (External) 19.0 ng/mL NON-INTERFACED (ONBASE SCANS) Blood 10/11/2021 Narrative BETH WHITEHEADT - 10/11/2021 12:00 AM CDT Verified by Shemar Gloria on 02/03/2022. Verified by Shemar Gloria on 02/03/2022. us Provider Outside LAB - BLOOD ORDERABLES Edited R esult - Final BETH PFLaura NON-INTERFACED (ONBASE SCANS) * Comprehensive metabolic panel (08/13/2021 12:00 AM ECOMMERCE MARKETING MANAGER) Glucose (External) 80 65 - 99 mg/dL NON-INTERFAC ED (ONBASE SCANS) Urea Nitrogen (External) 8 7 - 25 mg/dL NON-INTERFAC ED (ONBASE SCANS) Creatinine (External) 0.72 0.50 - 1.10 mg/dL NON-INTERFAC ED (ONBASE SCANS) GFR Estimated (External) 108 >=60 ml/min/1. 73m2 NON-INTERFAC ED (ONBASE SCANS) BUN/Creatinine Ratio (External) NOT APPLICABLE NON-INTERFAC ED (ONBASE SCANS) Sodium (External) 139 135 - 146 mmol/L NON-INTERFAC ED (ONBASE SCANS) Potassium (External) 4.1 3.5 - 5.3 mmol/L NON-INTERFAC ED (ONBASE SCANS) Chloride (External) 105 98 - 110 mmol/L NON-INTERFAC ED (ONBASE SCANS) CO2 (External) 27 20 - 32 mmol/L NON-INTERFAC ED (ONBASE SCANS) Calcium (External) 9.4 8.6 - 10.2 mg/dL NON-INTERFAC ED (ONBASE SCANS) Protein Total (External) 7.1 6.1 - 8.1 g/dL NON-INTERFAC ED (ONBASE SCANS) Albumin (External) 4.4 3.6 - 5.1 g/dL NON-INTERFAC ED (ONBASE SCANS) Bilirubin Total (External) 0.4 0.2 - 1.2 mg/dL NON-INTERFAC ED (ONBASE SCANS) Alk Phosphatase (External) 36 31 - 125 U/L NON-INTERFAC ED (ONBASE SCANS) AST (External) 14 10 - 30 U/L NON-INTERFAC ED (ONBASE SCANS) ALT (External) 11 6 - 29 U/L NON-INTERFAC ED (ONBASE SCANS) Blood 08/13/2021 Clare CAMPOS PFT - 02/03/2022 2:05 PM CDT Verified by Shemar Gloria on 02/03/2022. us Provider Outside LAB - BLOOD ORDERABLES Edited R esult - Final BETH CASTELLANOS NON-INTERFACED (ONBASE SCANS) * (ABNORMAL) CBC with Platelets & Differential (08/13/2021 12:00 AM ECOMMERCE MARKETING MANAGER) Absolute Basophils (External) 46 0 - 200 cells/uL NON-INTERFACE D (ONBASE SCANS) Absolute Eosinophils (External) 138 15 - 500 cells/uL NON-INTERFACE D (ONBASE SCANS) Absolute Lymphocytes (External) 1,472 850 - 3,900 cells/uL NON-INTERFACE D (ONBASE SCANS) Absolute Monocytes (External) 653 200 - 950 cells/uL NON-INTERFACE D (ONBASE SCANS) Absolute Neutrophils (External) 6,891 1,500 - 7,800 cells/uL NON-INTERFACE D (ONBASE SCANS) % Basophils (External) 0.5 % NON-INTERFACE D (ONBASE SCANS) % Eosinophils (External) 1.5 % NON-INTERFACE D (ONBASE SCANS) Hematocrit (External) 37.4 35.0 - 45.0 % NON-INTERFACE D (ONBASE SCANS) Hemoglobin (External) 12.1 11.7 - 15.5 g/dL NON-INTERFACE D (ONBASE SCANS) % Lymphocytes (External) 16.0 % NON-INTERFACE D (ONBASE SCANS) MCH (External) 26.5(L) 27.0 - 33.0 Pg NON-INTERFACE D (ONBASE SCANS) MCHC (External) 32.4 32.0 - 36.0 g/dL NON-INTERFACE D (ONBASE SCANS) MCV (External) 81.8 80.0 - 100.0 fL NON-INTERFACE D (ONBASE SCANS) % Monocytes (External) 7.1 % NON-INTERFACE D (ONBASE SCANS) % Neutrophils (External) 74.9 % NON-INTERFACE D (ONBASE SCANS) Platelet Count (External) 321 140 - 400 Thousand/u L NON-INTERFACE D (ONBASE SCANS) RDW (External) 14.0 11.0 - 15.0 % NON-INTERFACE D (ONBASE SCANS) RBC Count (External) 4.57 3.80 - 5.10 Million/uL NON-INTERFACE D (ONBASE SCANS) WBC Count (External) 9.2 3.8 - 10.8 Thousand/u L NON-INTERFACE D (ONBASE SCANS) Blood 08/13/2021 Narrative BREEZE PFT - 02/03/2022 2:05 PM CDT Verified by Shemar Gloria on 02/03/2022. us Provider Outside LAB - BLOOD ORDERABLES Edited R esult - Final BREEZE PFT NON-INTERFACED (ONBASE SCANS) * External Lab Results (08/13/2021 12:00 AM ECOMMERCE MARKETING MANAGER) [facility] Scan Lab Results (External) 8 8 - 25 ng/dL NON-INTERFACED (ONBASE SCANS) Comment:T3 REVERSE, LC/MS/MS 08/13/2021 Narrative BREEZE PFT - 02/03/2022 3:25 PM CDT Verified by Shemar Gloria on 02/03/2022. us Provider Outside LABORATORY Edited Result - Final BREEZE PFT NON-INTERFACED (ONBASE SCANS) * Vitamin B12 (08/13/2021 12:00 AM ECOMMERCE MARKETING MANAGER) [facility] Vitamin B12 (External) 509 200 - 1,100 pg/mL NON-INTERFACED (ONBASE SCANS) Blood 08/13/2021 Narrative [facility]REEZE PFT - 08/13/2021 12:00 AM ECOMMERCE MARKETING MANAGER Verified by Shemar Gloria on 02/03/2022. Provider Outside LAB - BLOOD ORDERABLES Edited [facility] Performing Organization Address [facility] Co de Phone Number BREEZE PFT NON-INTERFACED (ONBASE SCANS) * Folate (08/13/2021 12:00 AM ECOMMERCE MARKETING MANAGER) Folic Acid Serum (External) 15.5 ng/mL NON-INTERFACED (ONBASE SCANS) Blood 08/13/2021 Narrative BREEZE PFT - 08/13/2021 12:00 AM ECOMMERCE MARKETING MANAGER Verified by Shemar Gloria on 02/03/2022. Provider Outside LAB - BLOOD ORDERABLES Edited [facility] Performing Organization Address [facility] de Phone Number BREEZE PFT NON-INTERFACED (ONBASE SCANS) * (ABNORMAL) TSH (08/13/2021 12:00 AM ECOMMERCE MARKETING MANAGER) Pathologist [facility] TSH (External) 5.78(H) mIU/L NON-I NTERFACED (ONBASE SCANS) Blood 08/13/2021 Narrative BREEZE PFT - 08/13/2021 12:00 AM ECOMMERCE MARKETING MANAGER Verified by Shemar Gloria on 02/03/2022. Provider Outside LAB - BLOOD ORDERABLES Edited [facility] Performing Organization Address [facility]/ZIP Co de Phone Number BREEZE PFT NON-INTERFACED (ONBASE SCANS) * T4 free (08/13/2021 12:00 AM ECOMMERCE MARKETING MANAGER) Thyroxine Free (External) 0.9 0.8 - 1.8 ng/dL NON-INTERFACED (ONBASE SCANS) Blood 08/13/2021 Narrative BREEZE PFT - 08/13/2021 12:00 AM ECOMMERCE MARKETING MANAGER Verified by Shemar Gloria on 02/03/2022. Provider Outside LAB - BLOOD ORDERABLES Edited [facility] Performing Organization Address [facility] Co de Phone Number BREEZE PFT NON-INTERFACED (ONBASE SCANS) * T3 Free (08/13/2021 12:00 AM ECOMMERCE MARKETING MANAGER) T3 Free (External) 3.0 2.3 - 4.2 pg/mL NON-INTERFACED (ONBASE SCANS) Blood 08/13/2021 Narrative BREEZE PFT - 08/13/2021 12:00 AM ECOMMERCE MARKETING MANAGER Verified by Shemar Gloria on 02/03/2022. Provider Outside LAB - BLOOD ORDERABLES Edited [facility] Performing Organization Address [facility] de Phone Number BREEZE PFT NON-INTERFACED (ONBASE SCANS) * (ABNORMAL) TSH (05/15/2021 12:00 AM CDT) TSH (External) 5.34(H) mIU/L NON-I NTERFACED (ONBASE SCANS) Blood 05/15/2021 Narrative BREEZE PFT - 05/15/2021 12:00 AM CDT Verified by Shemar Gloria on 02/03/2022. Provider Outside LAB - BLOOD ORDERABLES Edited [facility] Performing Organization Address [facility] de Phone Number BREEZE PFT NON-INTERFACED (ONBASE SCANS) * T4 free (05/15/2021 12:00 AM CDT) Thyroxine Free (External) 0.81 0.8 - 1.8 ng/dL NON-INTERFACED (ONBASE SCANS) Blood 05/15/2021 Narrative BREEZE PFT - 05/15/2021 12:00 AM CDT Verified by Shemar Gloria on 02/03/2022. Provider Outside LAB - BLOOD ORDERABLES Edited R Bag [employer] BREEZE PFT NON-INTERFACED (ONBASE SCANS) * T3 Free (05/15/2021 12:00 AM CDT) T3 Free (External) 2.56 2.3 - 4.2 pg/mL NON-INTERFACED (ONBASE SCANS) Blood 05/15/2021 Narrative [facility]ZE PFT - 05/15/2021 12:00 AM CDT Verified by Shemar Gloria on 02/03/2022. Provider Outside LAB - BLOOD ORDERABLES Edited R [employer] Performing Organization Address [facility] Co de Phone Number BREEZE PFT NON-INTERFACED (ONBASE SCANS) * (ABNORMAL) Lipid Profile (05/15/2021 12:00 AM CDT) Triglycerides (External) 75 <150 mg/mL NON-INTERFACE D (ONBASE SCANS) Cholesterol (External) 148 <200 mg/mL NON-INTERFACE D (ONBASE SCANS) HDL Cholesterol (External) 38(L) >=50 mg/mL NON-INTERFACE D (ONBASE SCANS) LDL-Cholesterol (External) 95 mg/mL NON-INTERFACE D (ONBASE SCANS) Blood 05/15/2021 Narrative [facility]ZE PFT - 05/15/2021 12:00 AM CDT Verified by Shemar Gloria on 02/03/2022. Provider Outside LAB - BLOOD ORDERABLES Edited R [facility]ZE PFT NON-INTERFACED (ONBASE SCANS) documented in this encounter Visit Diagnoses Not on filedocumented in this encounter Care Teams Coil Shaper Relationship Specialty Start Date End Date Kelsi George MD [address] [place] [id number] PCP - General Family Practice 07/31/15 Inez Orosco DO [address] [place] [address] MD Cardiovascular Disease 02/01/22 Inez Orosco DO [address] [place] [id number] Assigned Heart and Vascular Provider 02/09/22 06/07/22 Mayra Recinos APRN DIE POLISHER [address] [id number] Nurse Practitioner Cardiovascular Disease 03/20/22 Mayra Recinos APRN DIE POLISHER [address] [address] Assigned Heart and Vascular Provider 06/08/22 11/15/22 Inez Orosco DO [address] [place] [address] Assigned Heart and Vascular Provider 11/16/22 11/22/22 Mayra Recinos APRN DIE POLISHER [address] [id number] Assigned Heart and Vascular Provider 11/23/22 12/10/23 documented as of this encounter
[2024-07-23 05:18] VITALS: BP 153/76; PULSE 135; RESP 15; TEMP 37.7; O2SAT 97; BMI 38.3
[2024-07-23 05:37] VITALS: PULSE 130; RESP 18; TEMP 37.7; O2SAT 99
--- NOTE | 2024-07-23 05:38 | CRLHL7_ITS ---
For Patients: As a result of the Century Cures Act, medical imaging exams and procedure reports are released immediately into your electronic medical record. You may view this report before your referring provider. If you have questions, please contact your health care provider. Indication: Palpitation. Technique: Two view(s) of the chest. Comparison: None available. Findings: Normal cardiomediastinal silhouette and pulmonary vasculature. Lungs are well inflated. No focal consolidation, pleural effusion or pneumothorax. No acute osseous abnormality. Impression: No acute cardiopulmonary abnormality identified. Dictated by Betty Norton MD @ 07/23/2024 6:10:08 AM (Electronically Signed)
--- NOTE | 2024-07-23 05:39 | ED.GENADULT ---
HPI - General Adult General Date Seen: 07/23/24 Chief complaint: Fever Stated complaint: 19 weeks , elevated heartrate Time Seen by Provider: 07/23/24 05:39 Source: patient Mode of arrival: ambulatory Limitations: no limitations History of Present Illness HPI narrative: Patient is a 38-year-old female presenting to emergency department for palpitations and a fever. She states she was feeling some viral symptoms yesterday. Was feeling warm but not check for any fevers. Also states she felt slightly lightheaded and very fatigued all of yesterday. The lightheadedness has improved quite a bit. She also states she has been feeling dehydrated and has been drinking as much water as she can. Has been urinating without issue denies dysuria. Has not been having any chest pain or shortness of breath. Denies abdominal pain, nausea, vision changes. Has been having intermittent headache since the getting of this . Denies having symptoms these with a previous 2 pregnancies. She is 19 weeks along. Has been having palpitations throat is though. Tonight they seem to woke her up from sleep but she spoke to her Ob Gyne and was told to come in for evaluation. She believe she has a virus and her niece had viral symptoms a couple days ago when she saw the patient. Patient denies rhinorrhea. Denies having a sore throat. As noted she feels congestion Related Data Home Medications ?Medication ?Instructions ?Recorded ?Confirmed docosahexaenoic acid 200 mg mg PO 05/17/24 07/05/24 capsule ( DHA) choline 250 mg tablet mg PO 07/05/24 07/05/24 aspirin 81 mg chewable tablet 81 mg PO DAILY 07/23/24 07/23/24 (Aspirin Childrens) Previous Rx's ?Medication ?Instructions ?Recorded levothyroxine 100 mcg tablet 100 mcg PO QDAY #90 tabs 05/17/24 pyridoxine (vitamin B6) 50 mg 50 mg PO BID nausea #120 tabs 05/17/24 tablet ondansetron 4 mg disintegrating 4 mg PO Q8H PRN nausea and 07/05/24 tablet vomiting #30 tabs levothyroxine 25 mcg capsule 25 mcg PO QDAY #1 cap 07/08/24 Allergies Allergy/AdvReac Type Severity Reaction Status Date / Time No Known Drug Allergies Allergy Verified 07/05/24 09:23 Review of Systems Status of ROS: Reports: 10 or more systems reviewed and unremarkable except as noted in History and below [facility] Medical History Cervical pain (neck) ?M54.2 - Cervicalgia (ICD-10) Anxiety ?F41.9 - Anxiety disorder, unspecified (ICD-10) Lyme disease ?A69.20 - Lyme disease, unspecified (ICD-10) 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) Hypothyroid ?E03.9 - Hypothyroidism, unspecified (ICD-10) Arthritis ?M19.90 - Unspecified osteoarthritis, unspecified site (ICD-10) GERD (gastroesophageal reflux disease) ?K21.9 - Gastro-esophageal reflux disease without esophagitis (ICD-10) Social History What is your current living situation?: I presently have a place to live In the past 12 months, utilities in danger of being shut off: no In past 12 months, lack of transportation kept you from medical appts, meetings, work, or getting things needed for daily living: no In the past 12 mos, have been you worried that your food would run out before you had money to buy more?: never true In the past 12 mos, the food you bought just didn't last and you didn't have money to buy more?: never true Do you use any of these nicotine containing products: None How often do you have a drink containing alcohol: never AUDIT-C Alcohol total score: 0 Non-prescribed substance use: denies use How often does anyone, including family, friends and others, physically hurt you: never How often does anyone, including family, friends and others, insult or talk down to you: never How often does anyone, including family, friends and others, threaten you with harm: never How often does anyone, including family, friends and others, scream or curse at you: never Exam Narrative: Exam Narrative: Const: Well-nourished, Well-developed, in mild distress Eyes: PERRL, no conjunctival injection, and symmetrical lids HENT: Atraumatic external nose and ears. Moist mucous membranes. Neck: Symmetric, trachea midline, No thyromegaly. CVS: Tachycardia, No murmurs or gallops. Peripheral pulses 2+ and equal in all extremities RESP: Unlabored respiratory effort. Clear to auscultation bilaterally. GI: Nontender/Nondistended, No rebound or guarding. MSK:Extremities w/o deformity, Normal Active ROM Skin: Warm, Dry. No rashes or lesions. Neuro: Normal Muscle tone, No focal neurological deficits. Psych: Awake, Alert, & Oriented x3. Appropriate mood and affect. Const: Vital Signs, click to edit/add: Vital Signs - 24 hr 07/23/24 05:18 07/23/24 05:37 07/23/24 06:25 Temperature 99.9 F H 99.9 F H Pulse Rate [Pulse Oximeter] 135 H 130 H 116 H Respiratory Rate 15 18 18 Blood Pressure [Ri ght Upper Arm] 153/76 H Pulse Oximetry 97 99 98 Oxygen Delivery Me thod Room Air Room Air Room Air 07/23/24 06:48 Temperature Pulse Rate [Pulse Oximeter] 109 H Respiratory Rate Blood Pressure [Ri ght Upper Arm] Pulse Oximetry Oxygen Delivery Me thod Course Vital Signs Vital signs: Initial Vital Signs Temperature 99.9 F H 07/23/24 05:18 Temperature Source Temporal Artery Scan 07/23/24 05:18 Pulse Rate 135 H 07/23/24 05:18 Respiratory Rate 15 07/23/24 05:18 Blood Pressure 153/76 H 07/23/24 05:18 Blood Pressure Mean 101 07/23/24 05:18 Blood Pressure Position Supine 07/23/24 05:18 Pulse Oximetry 97 07/23/24 05:18 Oxygen Delivery Method Room Air 07/23/24 05:18 Vital Signs Temperature 99.9 F H 07/23/24 05:18 Pulse Rate 135 H 07/23/24 05:18 Respiratory Rate 15 07/23/24 05:18 Blood Pressure 153/76 H 07/23/24 05:18 Pulse Oximetry 97 07/23/24 05:18 Oxygen Delivery Method Room Air 07/23/24 05:18 Temperature 99.9 F H 07/23/24 05:37 Pulse Rate 109 H 07/23/24 06:48 Respiratory Rate 18 07/23/24 06:25 Blood Pressure 153/76 H 07/23/24 05:18 Pulse Oximetry 98 07/23/24 06:25 Oxygen Delivery Method Room Air 07/23/24 06:25 Medications Administered Medications: Discontinued Medications Generic Name Dose Route Start Last Admin Trade Name Tushar PRN Reason Stop Dose Admin Lactated Ringer's 1,000 mls @ 1,000 mls/hr 07/23/24 05:38 07/23/24 06:56 Lactated Ringers 1000 Ml IV 07/23/24 06:37 Infused .Q1H ONE Infusion Medical Decision Making MDM Narrative Medical decision making narrative: Patient is a 38-year-old female presenting for tachycardia and fever. Tachycardia could related to her viral symptoms. Will order a COVID/flu/RSV swab. EKG and troponin ordered the for signs of ACS or arrhythmias. TSH ordered for her hypothyroidism. Will order a chest x-ray to look for signs of pneumonia. Patient is not having any chest pain and shortness of breath and PE seems likely unlikely cause for her tachycardia. She did also have some dehydration and a L of lactated Ringer's were ordered. Will also ordered CBC, BMP, urinalysis. She is positive for COVID. Rest of her labs showed no acute concerning abnormalities. EKG just showed tachycardia but her heart rate has improved after the fluids. She states she is feeling much better. Do not believe repeat troponin is necessary as symptoms have been going on since yesterday. No signs of a UTI. Chest x-ray reviewed by myself and the radiologist shows no acute concerning abnormalities. Lab Data Labs: Lab Results 07/23/24 07/23/24 Range/Units 05:30 05:40 WBC 11.47 H (4.50-11.00) K/uL RBC 3.92 L (4.00-5.20) m/uL Hgb 10.1 L (12.0-16.0) gm/dL Hct 30.5 L (33.0-51.0) % MCV 78 L (80-100) fL MCH 26 (26-34) pg MCHC 33 (32-36) gm/dL RDW Coeff of Subhash 15.8 H (11.5-15.5) % Plt Count 207 (140-440) K/uL Neut % (Auto) 85.9 H (42.0-72.0) % Lymph % (Auto) 3.1 L (20-44) % [place] % (Auto) 9.6 (0.0-11.0) % Eos % (Auto) 0.8 (0.0-7.0) % Baso % (Auto) 0.2 (0.0-3.0) % Neut # (Auto) 9.90 H (1.7-7.0) K/uL Lymph # (Auto) 0.40 L (0.90-2.90) K/uL [place] # (Auto) 1.10 H (0.00-0.90) K/UL Eos # (Auto) 0.10 (0.00-0.50) K/uL Baso # (Auto) 0.00 (0.00-0.30) K/uL Abs Immat Gran (auto) 0.00 (0.00-0.30) K/uL Imm/Tot Granulo (auto) 0.4 % Sodium 135 (135-149) mmol/L Potassium 3.6 (3.6-5.1) mmol/L Chloride 109 (96-114) mmol/L Carbon Dioxide 18 L (20-32) mmol/L Anion Gap 8 (7-15) mEq/L BUN 4 L (5-24) mg/dL Creatinine 0.4 L (0.5-1.5) mg/dL Estimated Creat Clear 171.59 Estimated GFR 130 ml/min Glucose 131 H (60-115) mg/dL Calcium 8.7 (8.4-10.6) mg/dL TSH 2.320 (0.270-4.200) uIU/mL Urine Color Yellow (Yellow) Urine Appearance Clear (Clear) Urine pH 6.0 (5.0-8.5) Ur Specific [place] 1.010 (1.000-1.030) Urine Protein Negative (Negative) Urine Glucose (UA) Negative (Negative) Urine Ketones Negative (Negative) Urine Blood Negative (Negative) Urine Nitrite Negative (Negative) Urine Bilirubin Negative (Negative) Urine Urobilinogen 0.2 (0.2-1.0) Ur Leukocyte Esterase Negative (Negative) Urine RBC 0-2 (0-2) Urine WBC 2-5 (0-5) Ur Squamous Epith Cells Few (None-Few) Urine Bacteria Moderate A (None) Urine Mucus Few A (None) SARS-CoV-2 (PCR) POSITIVE SARS-CoV-2 A (Negative) Influenza Type A (PCR) Negative PCR FLU A (Negative) Influenza Type B (PCR) Negative PCR FLU B (Negative) RSV (PCR) Negative PCR RSV (Negative) POC Troponin I 0.00 L (0.01-0.04) ng/ml Imaging Data Chest x-ray: Attestation: I have reviewed the pertinent imaging results. Radiologist's impression: No acute cardiopulmonary abnormality identified. Dictated by Betty Norton MD @ 07/23/2024 6:10:08 AM ECG Data Attestation: I personally reviewed and interpreted this ECG as follows: Prior ECG tracings: not available for review Interpretation: Sinus tachycardia rate of 1-28 beats per minute, normal intervals, normal axis, no ST or T-wave abnormalities. Discharge Plan Discharge Clinical Impression: COVID Patient Disposition: Home, Self-Care Condition: Improved Instructions: COVID-19 (Coronavirus Disease 2019) (ED) Additional Instructions: Quarantine for 5 days of onset of symptoms and make sure you go 72 hours without fever. Return to emergency department for new or worsened symptoms. Prescriptions: No Action DHA 200 mg capsule PO pyridoxine (vitamin B6) 50 mg tablet 50 mg PO BID Qty: 120 3RF choline 250 mg tablet PO aspirin [Aspirin Childrens] 81 mg tablet,chewable 81 mg PO DAILY levothyroxine 100 mcg tablet 100 mcg PO QDAY Qty: 90 0RF ondansetron 4 mg tablet,disintegrating 4 mg PO Q8H PRN (Reason: nausea and vomiting) Qty: 30 0RF levothyroxine 25 mcg capsule 25 mcg PO QDAY Qty: 1 0RF Follow Up/Referrals: Ruby Pickering DO [Primary Care Provider] - Stand Alone Forms: MyHealth Info Instructions
--- OUTSIDE RECORDS SUMMARY | 2024-07-23 05:44 | XMS_ITS | Encounter Summary ---
Author Organization [place] Address [address] [place] [address] Care Team Providers Care Ship Keeper Name Role Phone Kelsi George MD Primary Care Provider [phone] Inez Orosco DO Unavailable [phone] Inez Orosco DO Unavailable [phone] Mayra Recinos APRN NECKTIE STITCHER Unavailable [phone] Mayra Recinos APRN NECKTIE STITCHER Unavailable [phone] Inez Orosco DO Unavailable [phone] Mayra Recinos APRN NECKTIE STITCHER Unavailable [phone] Encounter Details Date Type Department Care Team (Late st Contact Info) Description 08/13/2021 External Order Results [facility] [address] [place] [address] Outside, Provider Social History Tobacco Use Types Packs/Day Years Used Date Smoking Tobacco: Never Alcohol Use Standard Drinks/Week Comments No 0 (1 standard drink = 0.6 oz pur e alcohol) Comments No Sex and Gender Information Value Date Recorded Sex Assigned at Not on file Legal Sex Female 5:07 AM CIVIL PREPAREDNESS COORDINATOR Gender Identity Not on file Sexual Orientation Not on file 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 us Provider Outside LAB - BLOOD ORDERABLES Edited R esult - Final HUK[place]nn PFLaura NON-INTERFACED (ONBASE SCANS) documented in this encounter Visit Diagnoses Not on filedocumented in this encounter Care Teams Ship Keeper Relationship Specialty Start Date End Date Kelsi George MD [address] [place] [address] PCP - General Family Practice 07/31/15 Inez Orosco DO [address] [place] [id number] Cardiovascular Disease 02/01/22 Inez Orosco DO [address] [place] [id number] Assigned Heart and Vascular Provider 02/09/22 06/07/22 Mayra Recinos APRN NECKTIE STITCHER [address] [address] Nurse Practitioner Cardiovascular Disease 03/20/22 Mayra Recinos APRN NECKTIE STITCHER [address] [id number] Assigned Heart and Vascular Provider 06/08/22 11/15/22 Inez Orosco DO [address] [place] [id number] Assigned Heart and Vascular Provider 11/16/22 11/22/22 Mayra Recinos APRN [facility] [address] [address] Assigned Heart and Vascular Provider 11/23/22 12/10/23 documented as of this encounter
--- OUTSIDE RECORDS SUMMARY | 2024-07-23 05:44 | XMS_ITS | Referral Summary ---
Author Organization [place] Address [address] [facility] [place] [address] Care Team Providers Care Thermoplastic Technician Name Role Phone Kelsi George MD Primary Care Provider [phone] Inez Orosco DO Unavailable [phone] Mayra Recinos APRN [facility] TECHNICIAN Unavailable [phone] Allergies Active Allergy Reactions Criticality Noted Date Comments Amoxicillin-Pot Clavulanate 11/04/19 10 Amoxicillin-Pot Clavulanate Nausea and Vomiting 08/21/2015 Medications LEVOTHYROXINE SODIUM PO Take 100 mcg by mouth daily Dosage unknown Active cholecalciferol (VITAMIN D3) 125 mcg (5000 units) capsule Take by mouth daily Active [place]-3 Fatty Acids (OMEGA 3 PO) Take by [...] on file Legal Sex Female 5:07 AM INFANTRY SENIOR SERGEANT Gender Identity Not on file Sexual Orientation Not on file 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 on file Not on file Not on file Last Filed Vital Signs Vital Sign Reading Time Taken Comments Blood Pressure 102/68 06/03/2022 10:27 AM INFANTRY SENIOR SERGEANT Pulse 68 06/03/2022 10:27 AM INFANTRY SENIOR SERGEANT Temperature 36.1 C (97 F) 06/22/2010 6:04 PM INFANTRY SENIOR SERGEANT Respiratory Rate 16 04/04/2010 1:28 PM CDT Oxygen Saturation 97% 06/03/2022 10:27 AM INFANTRY SENIOR SERGEANT Inhaled Oxygen Concentration - - Weight 98 kg (216 lb) 06/03/2022 10:27 AM INFANTRY SENIOR SERGEANT Height 167 cm (5' 5.75) 06/03/2022 10:27 AM INFANTRY SENIOR SERGEANT Body Mass Index 35.13 06/03/2022 10:27 AM INFANTRY SENIOR SERGEANT Plan of Treatment Not on file Procedures [...] EXTERNAL LAB - 12/18/2021 12:00 PM CDT [facility] PROGRESS NOTE us [...] R esult - Final Performing Organization Address [facility] Co de Phone Number BREEZE PFT NON-INTERFACED (ONBASE SCANS) * Glucose (12/18/2021 12:00 AM CDT) Glucose (External) 78 65 - 99 mg/dL NON-INTERFACED (ONBASE SCANS) Blood 12/18/2021 Narrative BREEZE PFT - 12/18/2021 12:00 AM CDT Verified by Shemar Gloria on 02/03/2022. Provider Outside LAB - BLOOD ORDERABLES Edited R esult - Final Performing Organization Address [facility] Co de Phone Number BREEZE PFT NON-INTERFACED (ONBASE SCANS) from Last 3 Months or Most Recently Relevant to Health Maintenance Insurance [facility] [place] Care Teams Thermoplastic Technician Relationship Specialty Start Date End Date Kelsi George MD [address] [place] [address] PCP - General Family Practice 07/31/15 Inez Orosco DO [address] [place] [id number] Cardiovascular Disease 02/01/22 Mayra Recinos APRN [facility] TECHNICIAN [address] [id number] Nurse Practitioner Cardiovascular Disease 03/20/22
--- OUTSIDE RECORDS SUMMARY | 2024-07-23 05:44 | XMS_ITS | Clinical Summary ---
Author Organization [place] Address [address] [facility] [place] [address] Care Team Providers Care Farm Service Adviser Name Role Phone Kesli George MD Primary Care Provider [phone] Inez Orosco DO Unavailable [phone] Mayra Recinos APRN BOOTMAKER Unavailable [phone] Allergies Active Allergy Reactions Criticality Noted Date Comments Amoxicillin-Pot Clavulanate 11/04/19 10 Amoxicillin-Pot Clavulanate Nausea and Vomiting 08/21/2015 Medications LEVOTHYROXINE SODIUM PO Take 100 mcg by mouth daily Dosage unknown Active cholecalciferol (VITAMIN D3) 125 mcg (5000 units) capsule Take by mouth daily Active [place]-3 Fatty Acids (OMEGA 3 PO) Take by [...] on file Legal Sex Female 5:07 AM MULTIPLE WIRE SAWYER Gender Identity Not on file Sexual Orientation Not on file 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 Not on file Not on file Last Filed Vital Signs Vital Sign Reading Time Taken Comments Blood Pressure 102/68 06/03/2022 10:27 AM MULTIPLE WIRE SAWYER Pulse 68 06/03/2022 10:27 AM MULTIPLE WIRE SAWYER Temperature 36.1 C (97 F) 06/22/2010 6:04 PM MULTIPLE WIRE SAWYER Respiratory Rate 16 04/04/2010 1:28 PM CDT Oxygen Saturation 97% 06/03/2022 10:27 AM MULTIPLE WIRE SAWYER Inhaled Oxygen Concentration - - Weight 98 kg (216 lb) 06/03/2022 10:27 AM MULTIPLE WIRE SAWYER Height 167 cm (5' 5.75) 06/03/2022 10:27 AM MULTIPLE WIRE SAWYER Body Mass Index 35.13 06/03/2022 10:27 AM MULTIPLE WIRE SAWYER Plan of Treatment Health Maintenance Due Date [...] EXTERNAL LAB - 12/18/2021 12:00 PM CDT [facility] PROGRESS NOTE us Patient Reported LABORATORY Final Result EXTERNAL LAB External Lab * T4 free (12/18/2021 12:00 AM CDT) Thyroxine Free (External) 1.0 0.8 - 1.8 ng/dL NON-INTERFACED (ONBASE SCANS) Blood 12/18/2021 Narrative [facility]REEZE PFT - 12/18/2021 12:00 AM CDT Verified by Shemar Gloria on 02/03/2022. Provider Outside LAB - BLOOD ORDERABLES Edited [employer] CARMENEZE PFT NON-INTERFACED (ONBASE SCANS) * Glucose (12/18/2021 12:00 AM CDT) Glucose (External) 78 65 - 99 mg/dL NON-INTERFACED (ONBASE SCANS) Blood 12/18/2021 Narrative [facility]ZE PFT - 12/18/2021 12:00 AM CDT Verified by Shemar Gloria on 02/03/2022. Provider Outside LAB - BLOOD ORDERABLES Edited [employer] BETH PFT NON-INTERFACED (ONBASE SCANS) from Last 3 Months or Most Recently Relevant to Health Maintenance Insurance [place] Care Teams Farm Service Adviser Relationship Specialty Start Date End Date Kelsi George MD [address] [place] [address] [place] [address] PCP - General Family Practice 07/31/15 Inez Orosco DO [address] [place] [address] Cardiovascular Disease 02/01/22 Mayra Recinos APRN CNP [address] [id number] Nurse Practitioner Cardiovascular Disease 03/20/22
--- OUTSIDE RECORDS SUMMARY | 2024-07-23 05:44 | XMS_ITS | Clinical Summary ---
Author Organization [employer] [facility] Address [place], [place] [address] Care Team Providers Care Certified Paralegal Name Role Phone Ruby Pickering DO Primary Care Provider [phone] Allergies Active Allergy Reactions Criticality Noted Date Comments Amoxicillin-Pot Clavulanate Vomiting,[place]oney sea And Vomiting 09/14/2008 Medications Cholecalciferol, Vitamin D3, 2,000 unit tablet Take 5,000 Units by mouth. Active Fnrit-3-OIS-EPA-Fis h Oil 1,000 mg (120 mg-180 mg) cap Take 1 capsule by mouth. 0 0 Active loratadine (CLARITIN) 10 mg tabletIndications:N juvenal congestion TAKE 1 TABLET BY MOUTH EVERY DAY 90 Tablet 1 1 Active fluticasone (50 mcg per actuation) nasal solution (FLONASE)Indication s:Eustachian tube dysfunction, bilateral,Nasal congestion Inhale 1 [place] to both nostrils two times daily. 48 [...] :Level 2 ultrasound and echocardiogram reassuring - [facility] recommended follow up ultrasound for growth and LAM in 6 weeks - done 08/19/12 normal LAM, no further testing needed per [facility] 07/31/2012- sent to [facility] to rule out PTL Obesity 12/18/2011 07/04/2016 Acute sinusitis, unspecified 11/11/2011 11/18/2013 Papanicolaou smear of cervix with atypical squamous cells cannot exclude high grade squamous intraepithelial lesion (ASC-H) 03/02/2009 04/13/2019 Overview (04/10/2018): [place] 2008. Plan to repeat 2 paps every [...] Department Care Team Description 07/02/2024 12:35 PM MACHINE TOOL TECHNICIAN INSTRUCTOR Office Visit [facility] [address] [place] [address] Jackie Baird PA Ear Problem 07/02/2024 Travel 04/23/2024 1:30 PM CDT Orders Only [facility] [address] [place] [address] Lab, [place] [facility] (/) 04/23/2024 Travel from [...] Family History Relation Name Status Comments Father Orlando Maternal Grandfather Maternal Grandmother diabete s Mother mo Paternal Grandfather Paternal Grandmother Sister Alive [place], [place] Social History Tobacco Use Types Packs/Day Years Used Date Smoking Tobacco: Never Smokeless Tobacco: Never Tobacco Cessation:Counseling Given: No Alcohol Use Standard Drinks/Week Comments No 0 (1 standard drink = 0.6 oz pur e alcohol) [facility] Utilities Answer Date Recorded Do you [...] on file Legal Sex Female 6:25 AM MACHINE TOOL TECHNICIAN INSTRUCTOR Gender Identity Not on file Sexual Orientation [...] g 9 9 Amir Fento n for [facility] Complications:Intraamniotic Infection Delivery Location:[facility] Comments:prolonged ROM , dx chorioamnionitis, 2nd degree repaired. SCN x 48 hours 2018 Term 40w 0d 0h 06m 2.77 kg (6 lb 1.7 oz) F Vag Epidur al Livin g 9 9 SOLTA NI,PE NDING Complications:None Delivery Location:[facility] [id number] [place] [address]) Current Last Filed Vital Signs Vital Sign Reading Time Taken Comments Blood Pressure 118/80 07/02/2024 12:32 PM MACHINE TOOL TECHNICIAN INSTRUCTOR Pulse 78 07/02/2024 12:32 PM MACHINE TOOL TECHNICIAN INSTRUCTOR Temperature 37.1 C (98.8 F) 09/11/2023 12:43 PM MACHINE TOOL TECHNICIAN INSTRUCTOR Respiratory Rate 16 07/02/2024 12:3 2 PM MACHINE TOOL TECHNICIAN INSTRUCTOR Oxygen Saturation 99% 07/02/2024 12: 32 PM MACHINE TOOL TECHNICIAN INSTRUCTOR Inhaled Oxygen Concentration - - Weight 105.3 kg (232 lb 3.2 oz) 024 12:32 PM MACHINE TOOL TECHNICIAN INSTRUCTOR Height 167.5 cm (5' 5.95) 07/02/2024 1 2:32 PM MACHINE TOOL TECHNICIAN INSTRUCTOR Body Mass Index 37.54 07/02/2024 12:32 PM MACHINE TOOL TECHNICIAN INSTRUCTOR Plan of Treatment Health Maintenance Due Date [...] 16 Negative Negative 02/16/2024 5:32 PM CDT [facility] TYPE 18 Negative Negative 02/16/2024 5:32 PM CDT [facility] OTHER HIGH RISK TYPES Negative Negative 02/16/2024 5:32 PM CDT [facility] Other (Cervical) Non-Blood / Unknown 02/11/2024 4:18 PM CDT 02/12/2024 3:06 PM CDT Narrative [facility] - 02/16/2024 5:32 PM CDT HPV types 16, 18, 31, 33, 35, 39, 45, 51, 52, 56, 58, 59, 66 and 68 DNA were undetectable or below the pre-set threshold. Methodology: Manuelito Edmundo 4800 HPV Test us Ruby Pickering DO MICROBIOLOGY Final Result [facility] [address] [place] [address], * ANTI HIV 1/2 (04/10/2018 4:14 PM CDT) HIV-1/HIV-2 ANTIBODY Non-Reacti ve Non-Reacti ve 04/10/2018 6:26 PM CDT [facility] Comment:HIV-1 p24 and HIV-1/ HIV-2 Ab not detected. Blood BLOOD SPECIMEN / Unknown Venipuncture / Unknown 04/10/2018 4:14 PM CDT 04/10/2018 4:14 PM CDT us Katia LEWISM SEND OUTS Final Re sult [facility] [address] [place] [address], from Last 3 Months or Most Recently Relevant to Health Maintenance Insurance [facility] [place] Advance Directives * Full Code [...] 2:10 PM 10/20/2012 8:15 PM Care Teams Certified Paralegal Relationship Specialty Start Date End Date Ruby Pick[place] [id number] PCP - General Family Practice 02/11/24
--- OUTSIDE RECORDS SUMMARY | 2024-07-23 05:44 | XMS_ITS | Encounter Summary ---
Author Organization [place] Address [address] [facility] [place] [address] Care Team Providers Care Pouako [place] Maori Name Role Phone Kelsi George MD Primary Care Provider [phone] Inez Orosco DO Unavailable [phone] Inez Orosco DO Unavailable [phone] Mayra Recinos APRN JOB CHECKER Unavailable [phone] Mayra Recinos APRN JOB CHECKER Unavailable [phone] Inez Orosco DO Unavailable [phone] Mayra Recinos APRN JOB CHECKER Unavailable [phone] Reason for Visit * Reason Onset Date Comments Zio Monitor concern 02/18/2022 Encounter Details Date Type Department Care Team (Late st Contact Info) Description 02/18/2022 Telephone [facility] [address] [facility] [address] [place] [address] Inez Orosco DO [address] [facility] [address] [place] [address] Zio Monitor concern Social History Tobacco Use Types Packs/Day Years Used Date Smoking Tobacco: Never Smokeless Tobacco: Never Alcohol Use Standard Drinks/Week Comments No 0 (1 standard drink = 0.6 oz pur e alcohol) Comments No Sex and Gender Information Value Date Recorded Sex Assigned at Not on file Legal Sex Female 5:07 AM VISUAL MERCHANDISING COORDINATOR Gender Identity Not on file Sexual Orientation Not on file 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 file Not on file [...] on filedocumented in this encounter Care Teams [place] Maori Relationship Specialty Start Date End Date Kelsi George MD [address] [place] [address] PCP - General Family Practice 07/31/15 Inez Orosco DO [address] [place] [address] Cardiovascular Disease 02/01/22 Inez Orosco DO [address] [place] [address] Assigned Heart and Vascular Provider 02/09/22 06/07/22 Mayra Recinos APRN JOB CHECKER [address] [address] Nurse Practitioner Cardiovascular Disease 03/20/22 Mayra Recinos APRN JOB CHECKER [address] [address] Assigned Heart and Vascular Provider 06/08/22 11/15/22 Inez Orosco DO [address] [place] [address] Assigned Heart and Vascular Provider 11/16/22 11/22/22 Mayra Recnios APRN JOB CHECKER [address] [id number] Assigned Heart and Vascular Provider 11/23/22 12/10/23 documented as of this encounter
--- OUTSIDE RECORDS SUMMARY | 2024-07-23 05:44 | XMS_ITS | Encounter Summary ---
Author Organization [place] Address [address] [facility] [place] [address] Care Team Providers Care Edger Machine Operator Name Role Phone Kelsi George MD Primary Care Provider [phone] Inez Orosco DO Unavailable [phone] Inez Orosco DO Unavailable [phone] Mayra Recinos APRN SERVICE DELIVERY SUPERVISOR Unavailable [phone] Mayra Recinos APRN SERVICE DELIVERY SUPERVISOR Unavailable [phone] Inez Orosco DO Unavailable [phone] Mayra Recinos APRN SERVICE DELIVERY SUPERVISOR Unavailable [phone] Encounter Details Date Type Department Care Team (Late st Contact Info) Description 12/18/2021 External Order Results [facility] [address] [place] [address] Outside, Provider Social History Tobacco Use Types Packs/Day Years Used Date Smoking Tobacco: Never Alcohol Use Standard Drinks/Week Comments No 0 (1 standard drink = 0.6 oz pur e alcohol) Comments No Sex and Gender Information Value Date Recorded Sex Assigned at Not on file Legal Sex Female 5:07 AM ALUMINUM FABRICATION SUPERVISOR Gender Identity Not on file Sexual Orientation Not on file 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 on file [...] PLATELETS & DIFFERENTIAL Routine 08/13/2021 12:00 AM ALUMINUM FABRICATION SUPERVISOR EXTERNAL LAB RESULTS Routine 08/13/2021 12:00 AM ALUMINUM FABRICATION SUPERVISOR TSH Routine 08/13/2021 12:00 AM ALUMINUM FABRICATION SUPERVISOR T4 FREE Routine 08/13/2021 12:00 AM ALUMINUM FABRICATION SUPERVISOR T3 FREE Routine 08/13/2021 12:00 AM ALUMINUM FABRICATION SUPERVISOR FOLATE Routine 08/13/2021 12:00 AM ALUMINUM FABRICATION SUPERVISOR COMPREHENSIVE METABOLIC PANEL Routine 08/13/2021 12:00 AM ALUMINUM FABRICATION SUPERVISOR VITAMIN B12 Routine 08/13/2021 12:00 AM ALUMINUM FABRICATION SUPERVISOR TSH Routine 05/15/2021 12:00 AM CDT T4 [...] Provider Outside LAB - BLOOD ORDERABLES Edited [employer] BREEZE PFT NON-INTERFACED (ONBASE SCANS) * T4 free (12/18/2021 12:00 AM CDT) Pathologist [facility] Thyroxine Free (External) 1.0 0.8 - 1.8 ng/dL NON-INTERFACED (ONBASE SCANS) Blood 12/18/2021 Narrative BREEZE PFT - 12/18/2021 12:00 AM CDT Verified by Shemar Gloria on 02/03/2022. Provider Outside LAB - BLOOD ORDERABLES Edited [employer] Performing Organization Address [facility] Co de Phone Number BREEZE PFT NON-INTERFACED (ONBASE SCANS) * T3 Free (12/18/2021 12:00 AM CDT) Pathologist [facility] T3 Free (External) 2.7 2.3 - 4.2 pg/mL NON-INTERFACED (ONBASE SCANS) Blood 12/18/2021 Narrative BREEZE PFT - 12/18/2021 12:00 AM CDT Verified by Shemar Gloria on 02/03/2022. Provider Outside LAB - BLOOD ORDERABLES Edited [employer] Performing Organization Address [facility]/ZIP Co de Phone Number BREEZE [...] R esult - Final Performing Organization Address [facility]/ZIP Co de Phone Number BREEZE [...] Outside LAB - BLOOD ORDERABLES Edited [employer] Final BREEZE PFT NON-INTERFACED (ONBASE SCANS) * (ABNORMAL) Thyroid peroxidase antibody (10/11/2021 12:00 AM CDT) Thyroid Peroxidase Antibody (External) 153(H) <9 IU/mL NON-INTERFACED (ONBASE SCANS) Blood 10/11/2021 Narrative BREEZE PFT - 10/11/2021 12:00 AM CDT Verified by Shemar Gloria on 02/03/2022. Provider Outside LAB - BLOOD ORDERABLES Edited [employer] BREEZE PFT NON-INTERFACED (ONBASE SCANS) * Vitamin B12 (10/11/2021 12:00 AM CDT) Vitamin B12 (External) 604 200 - 1,100 pg/mL NON-INTERFACED (ONBASE SCANS) Blood 10/11/2021 Narrative BREEZE PFT - 10/11/2021 12:00 AM CDT Verified by Shemar Gloria on 02/03/2022. Provider Outside LAB - BLOOD ORDERABLES Edited [employer] BREEZE PFT NON-INTERFACED (ONBASE SCANS) * Folate [...] * Comprehensive metabolic panel (08/13/2021 12:00 AM ALUMINUM FABRICATION SUPERVISOR) Glucose (External) 80 65 - 99 mg/dL [...] with Platelets & Differential (08/13/2021 12:00 AM ALUMINUM FABRICATION SUPERVISOR) Absolute Basophils (External) 46 0 - 200 [...] * External Lab Results (08/13/2021 12:00 AM ALUMINUM FABRICATION SUPERVISOR) [facility] Scan Lab Results (External) 8 8 - 25 ng/dL NON-INTERFACED (ONBASE SCANS) Comment:T3 REVERSE, LC/MS/MS 08/13/2021 Narrative BREEZE PFT - 02/03/2022 3:25 PM CDT Verified by Shemar Gloria on 02/03/2022. us Provider Outside LABORATORY Edited Result - Final BREEZE PFT NON-INTERFACED (ONBASE SCANS) * Vitamin B12 (08/13/2021 12:00 AM ALUMINUM FABRICATION SUPERVISOR) [facility] Vitamin B12 (External) 509 200 - 1,100 pg/mL NON-INTERFACED (ONBASE SCANS) Blood 08/13/2021 Narrative BREEZE PFT - 08/13/2021 12:00 AM ALUMINUM FABRICATION SUPERVISOR Verified by Shemar Gloria on 02/03/2022. Provider Outside LAB - BLOOD ORDERABLES Edited [facility] Performing Organization Address [facility] Co de Phone Number BREEZE PFT NON-INTERFACED (ONBASE SCANS) * Folate (08/13/2021 12:00 AM ALUMINUM FABRICATION SUPERVISOR) Folic Acid Serum (External) 15.5 ng/mL NON-INTERFACED (ONBASE SCANS) Blood 08/13/2021 Narrative BREEZE PFT - 08/13/2021 12:00 AM ALUMINUM FABRICATION SUPERVISOR Verified by Shemar Gloria on 02/03/2022. Provider Outside LAB - BLOOD ORDERABLES Edited [facility] Performing Organization Address [facility] de Phone Number BREEZE PFT NON-INTERFACED (ONBASE SCANS) * (ABNORMAL) TSH (08/13/2021 12:00 AM ALUMINUM FABRICATION SUPERVISOR) Pathologist [facility] TSH (External) 5.78(H) mIU/L NON-I NTERFACED (ONBASE SCANS) Blood 08/13/2021 Narrative BREEZE PFT - 08/13/2021 12:00 AM ALUMINUM FABRICATION SUPERVISOR Verified by Shemar Gloria on 02/03/2022. Provider Outside LAB - BLOOD ORDERABLES [facility] Performing Organization Address [facility]/ZIP Co de Phone Number BREEZE PFT NON-INTERFACED (ONBASE SCANS) * T4 free (08/13/2021 12:00 AM ALUMINUM FABRICATION SUPERVISOR) Thyroxine Free (External) 0.9 0.8 - 1.8 ng/dL NON-INTERFACED (ONBASE SCANS) Blood 08/13/2021 Narrative BREEZE PFT - 08/13/2021 12:00 AM ALUMINUM FABRICATION SUPERVISOR Verified by Shemar Gloria on 02/03/2022. Provider Outside LAB - BLOOD ORDERABLES Edited [facility] Performing Organization Address [facility] Co de Phone Number BREEZE PFT NON-INTERFACED (ONBASE SCANS) * T3 Free (08/13/2021 12:00 AM ALUMINUM FABRICATION SUPERVISOR) T3 Free (External) 3.0 2.3 - 4.2 pg/mL NON-INTERFACED (ONBASE SCANS) Blood 08/13/2021 Narrative BREEZE PFT - 08/13/2021 12:00 AM ALUMINUM FABRICATION SUPERVISOR Verified by Shemar Gloria on 02/03/2022. Provider Outside LAB - BLOOD ORDERABLES Edited [facility] Performing Organization Address [facility] de Phone Number BREEZE PFT NON-INTERFACED (ONBASE SCANS) * (ABNORMAL) TSH (05/15/2021 12:00 AM CDT) TSH (External) 5.34(H) mIU/L NON-I NTERFACED (ONBASE SCANS) Blood 05/15/2021 Narrative BREEZE PFT - 05/15/2021 12:00 AM CDT Verified by Shemar Gloria on 02/03/2022. Provider Outside LAB - BLOOD ORDERABLES Edited [facility] Performing Organization Address [facility] de Phone Number BREEZE PFT NON-INTERFACED (ONBASE SCANS) * T4 free (05/15/2021 12:00 AM CDT) Thyroxine Free (External) 0.81 0.8 - 1.8 ng/dL NON-INTERFACED (ONBASE SCANS) Blood 05/15/2021 Narrative BREEZE PFT - 05/15/2021 12:00 AM CDT Verified by Shemar Gloria on 02/03/2022. Provider Outside LAB - BLOOD ORDERABLES Edited [employer] BREEZE PFT NON-INTERFACED (ONBASE SCANS) * T3 Free (05/15/2021 12:00 AM CDT) T3 Free (External) 2.56 2.3 - 4.2 pg/mL NON-INTERFACED (ONBASE SCANS) Blood 05/15/2021 Narrative BREEZE PFT - 05/15/2021 12:00 AM CDT Verified by Shemar Gloria on 02/03/2022. Provider Outside LAB - BLOOD ORDERABLES Edited R [employer] Performing Organization Address [facility] Co de Phone Number BREEZE PFT NON-INTERFACED [...] Outside LAB - BLOOD ORDERABLES Edited R [employer] [facility] BREEZE PFT NON-INTERFACED (ONBASE SCANS) documented in this encounter Visit Diagnoses Not on filedocumented in this encounter Care Teams Edger Machine Operator Relationship Specialty Start Date End Date Kelsi George MD [address] [place] [id number] PCP - General Family Practice 07/31/15 Inez Orosco DO [address] [place] [address] MD Cardiovascular Disease 02/01/22 Inez Orosco DO [address] [place] [address] Assigned Heart and Vascular Provider 02/09/22 06/07/22 Mayra Recinos APRN SERVICE DELIVERY SUPERVISOR [address] [address] Nurse Practitioner Cardiovascular Disease 03/20/22 Mayra Recinos APRN SERVICE DELIVERY SUPERVISOR [address] [address] Assigned Heart and Vascular Provider 06/08/22 11/15/22 Inez Orosco DO [address] [place] [address] Assigned Heart and Vascular Provider 11/16/22 11/22/22 Mayra Recinos APRN SERVICE DELIVERY SUPERVISOR [address] [address] Assigned Heart and Vascular Provider 11/23/22 12/10/23 documented as of this encounter
--- OUTSIDE RECORDS SUMMARY | 2024-07-23 05:44 | XMS_ITS | Continuity of Care Document ---
Author Name Nw[facility]IN User [facility] Address Unknown Organization Unknown Address Unknown Procedures FILTER APPLIED:Only known Procedures with Onset Date within the last 5 years Procedure Date Procedure Provider Additional Inform ation Status MANUAL THERAPY 1/> [facility] (29496) Completed THERAPEUTIC EXERCISES (32103) Completed PT EVAL LOW COMPLEX 20 MIN (77541) Completed MANUAL THERAPY 1/> [facility] (66700) Completed THERAPEUTIC EXERCISES (52765) Completed PT EVAL LOW COMPLEX 20 MIN (03535) Completed Encounters FILTER APPLIED:Only known Encounters with Admission Date within the last 5 years Encounter Location Admission Discharge Billing Code Plant Breeder A joss[facility] Outpatient [facility] Out[facility] Dunn
--- OUTSIDE RECORDS SUMMARY | 2024-07-23 05:45 | XMS_ITS | Clinical Summary ---
Author Organization [facility] Address [address] [place] [address] Care Team Providers Care Mixer Pigment Name Role Phone No Primary/Referring, Phy Primary Care Provider Unavailable Source Comments You are receiving this document as you are listed as the primary care provider,follow-up provider, or the patient has been referred to you for consultation.This is in compliance with the Medicare and[facility] EHR Incentive Program,which states Providers who transition their patient to another setting of careor provider of care or refers their patient to another provider of care shouldprovide summary care record for each transition of care or referral. [facility] Allerg[facility] Active Allergy Reactions Criticality Noted Date [...] intraepithelial lesion (ASC-H) 03/02/2009 Overview (04/09/2017): Overview: [place] 2008. Plan to repeat 2 paps every [...] age to complete this topic Care Teams Mixer Pigment Relationship Specialty Start Date End Date No Primary/Referring, Adia PCP - General 04/07/17
[2024-07-23 05:58] LABS: Basophils Percent Auto 0.2 % (0.0-3.0); Eosinophils Percent Auto 0.8 % (0.0-7.0); Hematocrit 30.5 % (33.0-51.0); Hemoglobin* 10.1 gm/dL (12.0-16.0); Immature Granulocytes Pct Auto 0.4 %; Lymphocytes Percent Auto 3.1 % (20-44); Mean Corpuscular HGB Conc 33 gm/dL (32-36); Mean Corpuscular Hemoglobin 26 pg (26-34); Mean Corpuscular Volume 78 fL (80-100); Monocytes Percent Auto 9.6 % (0.0-11.0); Neutrophils Percent Auto 85.9 % (42.0-72.0); Platelet Count* 207 K/uL (140-440); RDW Coefficient of Variation % 15.8 % (11.5-15.5); Red Blood Count 3.92 m/uL (4.00-5.20); White Blood Count* 11.47 K/uL (4.50-11.00)
[2024-07-23 06:00] LABS: Appearance Urine Clear (Clear); Bilirubin Urine Negative (Negative); Blood Urine Negative (Negative); Color Urine Yellow (Yellow); Glucose Urine Negative (Negative); Ketones Urine Negative (Negative); Leukocyte Esterase Urine Negative (Negative); Nitrite Urine Negative (Negative); Protein Urine Negative (Negative); Urobilinogen Urine 0.2 (0.2-1.0)
[2024-07-23 06:00] LABS: Slide Review Reflex No
[2024-07-23] MEDS: LACTATED RINGERS 1000 ML 1,000 ML IV (06:00)
[2024-07-23 06:15] LABS: Chloride* 109 mmol/L (96-114); Potassium* 3.6 mmol/L (3.6-5.1); Sodium* 135 mmol/L (135-149)
[2024-07-23 06:16] LABS: PCR FLU A Negative PCR FLU A (Negative); PCR FLU B Negative PCR FLU B (Negative); PCR RSV Negative PCR RSV (Negative); SARS PCR* POSITIVE SARS-CoV-2 (Negative)
[2024-07-23 06:18] LABS: Anion Gap 8 mEq/L (7-15); Blood Urea Nitrogen* 4 mg/dL (5-24); Carbon Dioxide* 18 mmol/L (20-32); Creatinine* 0.4 mg/dL (0.5-1.5); Est. Creatinine Clearance* 171.59; Estimated Glomerular Filt Rate 130 ml/min
[2024-07-23 06:19] LABS: Calcium* 8.7 mg/dL (8.4-10.6); Glucose* 131 mg/dL (60-115)
[2024-07-23 06:20] LABS: Bacteria Urine Moderate; RBC Urine 0-2 (0-2); Squamous Epithelial Cell Urine Few (None-Few)
[2024-07-23 06:21] LABS: Mucus Urine Few
[2024-07-23 06:25] VITALS: PULSE 116; RESP 18; O2SAT 98
[2024-07-23 06:48] VITALS: PULSE 109
[2024-07-23 08:27] VITALS: PULSE 111; RESP 18
== END 2024-07-23 08:00 | disposition home or self-care (01) ==
PROVIDERS: Emergency Provider Student in an Organized Health Care Education/Training Program; PCP Family Medicine
DX: U07.1 COVID-19 (principal); Z3A.19 19 weeks gestation of pregnancy
CPT/HCPCS: 36415; 71046; 80048; 81001; 84443; 84484; 85025; 87086; 87631; 93005; 99284; J7120

== ENCOUNTER 2024-07-28 09:23 | Outpatient (CLI) | payer BC, SELFPAY | END 2024-07-28 09:24 | disposition home or self-care (01) | LOC: US 09:25 | PROVIDERS: PCP Family Medicine; Visit Provider Advanced Practice Midwife | DX: O09.522 Supervision of elderly multigravida, second trimester (principal); Z3A.20 20 weeks gestation of pregnancy | CPT/HCPCS: 76811 ==

== ENCOUNTER 2024-08-16 09:38 | Outpatient (CLI) | payer BC, SELFPAY | END 2024-08-16 09:39 | disposition home or self-care (01) | PROVIDERS: PCP Family Medicine; Visit Provider Advanced Practice Midwife | DX: Z34.92 Encounter for supervision of normal pregnancy, unspecified, second trimester (principal); Z3A.22 22 weeks gestation of pregnancy | CPT/HCPCS: 82728; 84443 ==

== ENCOUNTER 2024-08-25 09:21 | Outpatient (CLI) | payer BC, SELFPAY | END 2024-08-25 09:22 | disposition home or self-care (01) | LOC: US 09:22 | PROVIDERS: PCP Family Medicine; Visit Provider Advanced Practice Midwife | DX: O09.522 Supervision of elderly multigravida, second trimester (principal); O35.9XX0 Maternal care for (suspected) fetal abnormality and damage, unspecified, not applicable or unspecified; Z3A.24 24 weeks gestation of pregnancy | CPT/HCPCS: 76816 ==

== ENCOUNTER 2024-09-13 09:00 | Outpatient (RCR) | payer BC, SELFPAY ==
--- NOTE | 2024-08-20 12:56 | URNOTE ---
Request received for authorization for Iron Sucrose (Venofer) ([id number]). Prior authorization is not required per [facility] Ref#[id number], date range: 08/20/2024 to 10/18/2024.
[2024-08-27 09:25] VITALS: BP 130/61; PULSE 106; RESP 16; TEMP 36.9; O2SAT 99
[2024-08-27 10:18] VITALS: BP 113/77; PULSE 92; RESP 18; O2SAT 97
[2024-08-27 10:55] VITALS: BP 109/66; PULSE 97; RESP 18; O2SAT 96
[2024-08-31 09:02] VITALS: BP 127/81; PULSE 97; RESP 18; TEMP 36.2; O2SAT 98
[2024-08-31 09:43] VITALS: BP 110/72; PULSE 93; O2SAT 97
[2024-08-31] MEDS: SODIUM CHLORIDE 0.9 % (FLUSH) 10 ML SYRINGE IVF (09:43)
[2024-08-31 10:12] VITALS: BP 106/71; PULSE 86; O2SAT 97
[2024-09-03 09:07] VITALS: BP 121/79; PULSE 99; RESP 16; TEMP 36.3; O2SAT 97
[2024-09-03] MEDS: SODIUM CHLORIDE 0.9 % (FLUSH) 10 ML SYRINGE IVF (09:27)
[2024-09-03 09:58] VITALS: BP 111/73; PULSE 90; RESP 18; TEMP 36.3; O2SAT 97
[2024-09-03 10:32] VITALS: BP 114/76; PULSE 92; RESP 16; TEMP 36.2; O2SAT 98
[2024-09-08 08:56] VITALS: BP 119/75; PULSE 95; RESP 16; TEMP 37.3; O2SAT 98
[2024-09-08] MEDS: SODIUM CHLORIDE 0.9 % (FLUSH) 10 ML SYRINGE IVF (09:12)
[2024-09-08 09:39] VITALS: BP 114/78; PULSE 94; RESP 16; TEMP 37.2; O2SAT 98
[2024-09-08 10:00] VITALS: BP 112/73; PULSE 91; RESP 16; TEMP 37.4; O2SAT 97
[2024-09-13 09:17] VITALS: BP 131/77; PULSE 111; RESP 16; TEMP 36.1; O2SAT 97
[2024-09-13] MEDS: SODIUM CHLORIDE 0.9 % (FLUSH) 10 ML SYRINGE IVF (09:40)
[2024-09-13 10:11] VITALS: BP 121/78; PULSE 103; RESP 16; TEMP 36.6; O2SAT 96
[2024-09-13 10:45] VITALS: BP 127/69; PULSE 92; RESP 16; O2SAT 100
== END 2025-02-23 23:59 | disposition home or self-care (01) ==
LOC: CCIC 09:00
PROVIDERS: PCP Family Medicine; Referring Provider Family Medicine; Visit Provider Clinical Nurse Specialist
DX: O99.013 Anemia complicating pregnancy, third trimester (principal); D64.9 Anemia, unspecified
CPT/HCPCS: 96365; J1756; J7050

== ENCOUNTER 2024-09-15 08:51 | Outpatient (CLI) | payer BC, SELFPAY | END 2024-09-15 08:52 | disposition home or self-care (01) | LOC: RAD 08:53 | PROVIDERS: PCP Family Medicine; Visit Provider Internal Medicine Cardiovascular Disease | DX: R00.2 Palpitations (principal); R06.02 Shortness of breath | CPT/HCPCS: 93306 ==

== ENCOUNTER 2024-09-27 08:04 | Outpatient (CLI) | payer BC, SELFPAY | END 2024-09-27 08:05 | disposition home or self-care (01) | LOC: NFLDREF 08:04 | PROVIDERS: PCP Family Medicine; Visit Provider Advanced Practice Midwife | DX: O99.013 Anemia complicating pregnancy, third trimester (principal); O99.283 Endocrine, nutritional and metabolic diseases complicating pregnancy, third trimester; E03.9 Hypothyroidism, unspecified; Z3A.28 28 weeks gestation of pregnancy; Z11.3 Encounter for screening for infections with a predominantly sexual mode of transmission | CPT/HCPCS: 82728; 84443; 86592 ==

== ENCOUNTER 2024-10-11 11:07 | Outpatient (CLI) | payer BC, SELFPAY | END 2024-10-11 11:08 | disposition home or self-care (01) | LOC: NFLDREF 10-12 07:49 | PROVIDERS: PCP Family Medicine; Referring Provider Family Medicine; Visit Provider Advanced Practice Midwife | DX: R82.90 Unspecified abnormal findings in urine (principal) | CPT/HCPCS: 87086 ==

== ENCOUNTER 2024-10-29 11:11 | Outpatient (CLI) | payer BC, SELFPAY | END 2024-10-29 11:12 | disposition home or self-care (01) | PROVIDERS: PCP Family Medicine; Visit Provider Advanced Practice Midwife | DX: O99.283 Endocrine, nutritional and metabolic diseases complicating pregnancy, third trimester (principal); E03.9 Hypothyroidism, unspecified; D64.9 Anemia, unspecified; Z3A.33 33 weeks gestation of pregnancy | CPT/HCPCS: 82728; 84443 ==

== ENCOUNTER 2024-11-19 09:50 | Outpatient (CLI) | payer BC, SELFPAY | END 2024-11-19 09:51 | disposition home or self-care (01) | LOC: NFLDREF 11-25 18:08 | PROVIDERS: PCP Family Medicine; Referring Provider Family Medicine; Visit Provider Advanced Practice Midwife | DX: Z34.83 Encounter for supervision of other normal pregnancy, third trimester (principal) | CPT/HCPCS: 87081; 87653 ==

== ENCOUNTER 2024-11-24 12:03 | Outpatient (CLI) | payer BC, SELFPAY ==
[2024-11-24 12:22] VITALS: PULSE 94; O2SAT 98
[2024-11-24 12:23] VITALS: BP 127/78; PULSE 88; RESP 16; TEMP 36.8
[2024-11-24 12:27] VITALS: PULSE 95; O2SAT 98
--- NOTE | 2024-11-24 14:09 | PC.OBNST ---
NST Note NST Note Start: 11/24/24 12:29 Freq: ONCE Status: Active Protocol: Document 11/24/24 12:29 BRM (Rec: 11/24/24 12:49 BRM Desktop) NST Note 4 Para (# of births) 2 EDC 12/15/24 Gestational Age In Weeks & Days 37 Weeks & 0 Days Patient Presented with Complaint(s) of Decreased movement Reactive Yes Appropriate for Gestational Age Yes ELSIE Ballesteros RN Date 11/24/24 Appropriate for Gestational Age Yes ELSIE LEWISM Date 11/24/24 OB NST charge Yes Complete NST Note via Write Note Yes The provider's electronic signature indicates the NST is reactive/appropriate for gestational age. *Note to provider: If an addendum is required, open the patient's chart and click on the note under the Nurse/Allied Health tab.
== END 2024-11-24 13:10 | disposition home or self-care (01) ==
LOC: OB OUT 12:05 → OB 12:20
PROVIDERS: PCP Family Medicine; Visit Provider Midwife
DX: O36.8130 Decreased fetal movements, third trimester, not applicable or unspecified (principal); Z3A.37 37 weeks gestation of pregnancy
CPT/HCPCS: 59025; G0463

== ENCOUNTER 2024-12-03 20:54 | Outpatient (CLI) | payer BC, SELFPAY ==
[2024-12-03 21:30] VITALS: BP 131/74; PULSE 100
[2024-12-03 21:47] VITALS: BP 120/58; PULSE 90
[2024-12-03 22:01] VITALS: BP 125/61; PULSE 93; RESP 18; TEMP 36.4
--- NOTE | 2024-12-03 23:33 | PC.OBNST ---
NST Note NST Note Start: 12/03/24 21:06 Freq: ONCE Status: Active Protocol: Document 12/03/24 23:15 CHAITANYA (Rec: 12/03/24 23:19 CHAITANYA [id number]) NST Note 4 Para (# of births) 2 EDC 12/15/24 Gestational Age In Weeks & Days 38 Weeks & 2 Days High Risk Factors Advanced Maternal Age Patient Presented with Complaint(s) of Other Other Complaints Elevated BPs at home Reactive Yes ELSIE Reid, ELSIE Date 12/03/24 Reactive Yes ELSIE Rivers RN Date 12/03/24 OB NST charge Yes Complete NST Note via Write Note Yes The provider's electronic signature indicates the NST is reactive/appropriate for gestational age. *Note to provider: If an addendum is required, open the patient's chart and click on the note under the Nurse/Allied Health tab.
== END 2024-12-03 22:48 | disposition home or self-care (01) ==
LOC: OB OUT 20:54 → OB 20:55
PROVIDERS: PCP Family Medicine; Visit Provider Midwife
DX: O09.523 Supervision of elderly multigravida, third trimester (principal); R03.0 Elevated blood-pressure reading, without diagnosis of hypertension; Z3A.38 38 weeks gestation of pregnancy
CPT/HCPCS: 59025; G0463

== ENCOUNTER 2024-12-08 16:42 | Outpatient (CLI) | payer BC, SELFPAY ==
[2024-12-08] VITALS (24 sets, daily range): BP systolic 128–134; BP diastolic 59–73; PULSE 89–108; TEMP 36.7; O2SAT 98–100
[2024-12-08 18:23] LABS: Amnisure Rom* Negative
--- NOTE | 2024-12-08 19:09 | PM.OBLDTN ---
OB - Triage/Final Diagnosis Visit Information Time Seen by Provider: 19:00 Date Seen: 12/08/24 Date of evaluation: 12/08/24 Narrative: Rhona is a 39 year old 4 para 2 at 39.0 weeks gestation by LMP, who presents with elevated blood pressures at home in the 140/90's. She also complains of a general feeling of discomfort. She admits she has a lot of anxiety this and has had more discomfort, increased swelling and is being monitored for borderline blood pressure readings. She was seen in clinic earlier today and reported some morning elevations of blood pressure but rechecks all normal and none of her readings are in the severe range. While here she noted a gush of fluid so an AmniSure was sent and was negative. Highest blood pressure here is 134/ 67, denies headache, abdominal pain, visual changes and is feeling irregular contractions. We discussed an elective induction for this evening if desired could be offered due to her anxiety about her blood pressures and her concern about how she has been feeling. She does have an induction scheduled for next week and expresses a strong desire to wait for labor to start on her own. After talking with her partner, she has decided to go home and not be induced, she plans to be seen in clinic in 2 days and would like to have a membrane sweep if possible on that day. Emotional support was given and reassurance that at this time there is not a medical reason to induce her. Encouraged to come back in at any point if she has concerns about blood pressures or how she is feeling. She was comfortable with discharging this evening. Evaluation Laboratory results: Laboratory Tests 12/08/24 Range/Units 17:59 Membrane Rupture Negative Vital signs: Vital Signs - 24 hr 12/08/24 16:53 12/08/24 16:58 12/08/24 17:03 Temperature Pulse Rate Blood Pressure Pulse Oximetry 99 99 99 12/08/24 17:08 12/08/24 17:09 12/08/24 17:13 Temperature Pulse Rate 90 Blood Pressure 133/71 Pulse Oximetry 98 98 12/08/24 17:18 12/08/24 17:23 12/08/24 17:26 Temperature Pulse Rate 97 Blood Pressure 132/73 Pulse Oximetry 99 99 12/08/24 17:28 12/08/24 17:33 12/08/24 17:38 Temperature Pulse Rate Blood Pressure Pulse Oximetry 99 98 99 12/08/24 17:42 12/08/24 17:43 12/08/24 17:48 Temperature Pulse Rate 97 Blood Pressure 129/72 Pulse Oximetry 100 99 12/08/24 17:59 12/08/24 18:12 12/08/24 18:16 Temperature Pulse Rate 93 92 Blood Pressure 134/67 130/72 Pulse Oximetry 100 12/08/24 18:17 12/08/24 18:22 12/08/24 18:27 Temperature Pulse Rate Blood Pressure Pulse Oximetry 99 100 99 12/08/24 18:32 12/08/24 18:37 12/08/24 18:52 Temperature 98.1 F Pulse Rate 92 Blood Pressure 128/59 L Pulse Oximetry 100 98 Comments: Discharge home with preeclampsia precautions. Return to clinic in two day or PRN. Vistaril PRN sent to pharmacy for her. Fetus (Single) Heart Rate Baseline: 145 Library Specialist Variability: Moderate (6-25) Monitor Accelerations: Present Monitor Decelerations: None Final Diagnosis (1) Anxiety: Status: Acute
--- NOTE | 2024-12-08 19:29 | PC.OBNST ---
NST Note NST Note Start: 12/08/24 16:48 Freq: ONCE Status: Active Protocol: Document 12/08/24 19:26 SRV (Rec: 12/08/24 19:29 SRV [id number]) NST Note 4 Para (# of births) 2 EDC 12/15/24 Gestational Age In 39 Weeks & 0 Days Weeks & Days High Risk Factors High Blood Pressure - Gestational,Advanced Maternal Age Patient Presented Other with Complaint(s) of Other Complaints Elevated BPs, edema, finger tingling, feeling off and like hearts racing. Reactive Yes Appropriate for Yes Gestational Age ELSIE Farmer Date 12/08/24 Reactive Yes Appropriate for Yes Gestational Age ELSIE Stoddard Date 12/08/24 OB NST charge Yes Complete NST Note Yes via Write Note The provider's electronic signature indicates the NST is reactive/appropriate for gestational age. *Note to provider: If an addendum is required, open the patient's chart and click on the note under the Nurse/Allied Health tab.
== END 2024-12-08 19:15 | disposition home or self-care (01) ==
LOC: OB OUT 16:52 → OB 16:52
PROVIDERS: PCP Family Medicine; Visit Provider Advanced Practice Midwife
DX: O10.913 Unspecified pre-existing hypertension complicating pregnancy, third trimester (principal); O09.523 Supervision of elderly multigravida, third trimester; Z3A.39 39 weeks gestation of pregnancy
CPT/HCPCS: 59025; 84112; G0463

== ENCOUNTER 2024-12-14 09:37 | Inpatient (IN) | payer BC, SELFPAY ==
[2024-12-14] VITALS (55 sets, daily range): BP systolic 89–154; BP diastolic 46–97; PULSE 76–131; RESP 18; TEMP 36.6–37.2; O2SAT 97–100; BMI 41.5
[2024-12-14 10:12] LABS: Basophils Percent Auto 0.2 % (0.0-3.0); Eosinophils Percent Auto 0.7 % (0.0-7.0); Hematocrit 34.5 % (33.0-51.0); Hemoglobin* 11.6 gm/dL (12.0-16.0); Immature Granulocytes Pct Auto 0.4 %; Mean Corpuscular HGB Conc 34 gm/dL (32-36); Mean Corpuscular Hemoglobin 28 pg (26-34); Mean Corpuscular Volume 82 fL (80-100); Monocytes Percent Auto 9.9 % (0.0-11.0); Neutrophils Percent Auto 76.8 % (42.0-72.0); Platelet Count* 220 K/uL (140-440); RDW Coefficient of Variation % 15.5 % (11.5-15.5); Red Blood Count 4.21 m/uL (4.00-5.20); White Blood Count* 11.87 K/uL (4.50-11.00)
[2024-12-14] MEDS: LACTATED RINGERS 1000 ML 1,000 ML 999 ML IV ×2 (10:12→11:16)
[2024-12-14 10:23] LABS: Slide Review Reflex No
--- NOTE | 2024-12-14 10:40 | P.LDBA_ITS ---
Subjective History of Present Illness Narrative: Patient is being admitted to Labor and Delivery for active/early labor. She is a 39 year old at 39 6/7 weeks gestation. Her full history and physical was dictated by Stephane on 11/26/24. Please see this for details. Specific Issues/Plans G4 P 2 Partner:?Addison Its a boy! H&P completed by EDUARDA Galdamez on 11/26/2024 #AMA: Considering genetic screen with carrier testing and gender Lev 2 recommended: Completed #Obesity, Prepregnancy BMI 36.2 ? Weekly testing starting at 37 weeks, declines? Delivery recommended: elective delivery considered at >39 0/7 we eks.? #Exposed to Parvovirus at 14 weeks Labs: no current infection but past exposure/immunity ? #Hx hypothyroid? TSH 4.88 at NOB, Levo increased to 100mcg daily. Recheck at 16w. TSH 3.53 at 17 weeks, increased to 125 mcg. She has some 25mcg and 50 mcg tabs at home. Will message if she needs additional. TSH 3.94 at 22wks, increased to 137mg. TSH 3.26 at 28 wks. increase to 150mcg TSH 3.14 at 33 wks. Aware goal is to be <3.0, desires to keep same dose; asymptomatic #Difficulty swallowing and right thyroid nodule palpated at NOB: recommended to f/u in 1 year. #anxiety and depression: no current meds, prev propanolol use, may consider vistaril if needed Has some anxiety related to health care # Varicella non-immune Recommend vaccine # Hx HTN in labor and with 2nd Pt declines being on medications Reviewed baby ASA, she may consider taking ? #Heart palpitations at 22.5 wks Zio monitor ordered-negative results Cardiology consult Echo normal #Symptomatic anemia Hgb 9.8, ferritin 4.6 IV iron recommended- completed restart oral iron 2 wks after Hgb: 11.7 (10/29/24) Ferritin 7.2 Imaging:? 1st trimester: 05/17/2025- SLIUP consistent with dating?? Anatomy scan: 07/28/24-normal findings but with limited views of a couple things. Anterior placenta. 86% EFW?? Others: 08/25/24-F/U views normal. 94% EFW ? COVID:??declined Flu:???declined Tdap:?10/11/2024 RSV:??? 32wk Mental Health:? 34wk hgb:??? Pap: 02/2024 NILM with neg HPV, due 2028? OB - Problem Based A/P Additional Plan (1) Pain during labor: Status: Acute (2) High-risk supervision: Status: Acute (3) AMA (advanced maternal age) multigravida 35+: Status: Acute (4) Hypothyroid in , antepartum: Problem details: U/S on 05/18/24 noted bilateral thyroid nodules, no FNA. F/U in 1 year. Status: Acute (5) Anxiety: Status: Acute (6) Anemia affecting : Status: Acute (7) Obesity affecting : Status: Acute Plan ASSESSMENT:?? 39yo at 39w6d gestation?? complicated by:??AMA, Obesity, exposure to Parvovirus, depression/anxiety, hypothyroid Labor type: Spontaneous, early/active labor?? Category 1 FHR pattern.??? Labor complicated by: none?? GBS negative ?? PLAN:?? 1. Routine intrapartum cares as ordered. Continue with expectant management?? 2. Monitoring per policy, continuous 3. Candidate for analgesia of choice. 4. Patient encouraged to reposition and ambulate to promote physiologic labor and .?? 5. Anticipate ? 6. Start 100 mcg daily levothyroxine . OB Result Labs Blood Type: A (+) positive Rubella: immune RPR/VDLR: nonreactive GBS Status: negative HBsAG: negative OB Exam Physical Exam Vital signs: Pulse BP Pulse Ox 76 123/67 97 12/14/24 10:10 12/14/24 10:10 12/14/24 09:41 Narrative: Vitals Reviewed Constitutional:? Alert and oriented x3 HEENT:? Normocephalic, atraumatic Lungs:? Clear to auscultation bilaterally Heart:? Regular rate and rhythm, no murmur, rub or gallop Abdomen:? Soft, nontender, and gravid. Vertex by Adilson's, confirmed with cer vical exam per nursing. Extremities:? No edema or erythema Cervix: 2-3 cm/70%/ vertex per nursing NST: 130 bpm/moderate variability/accelerations present/decelerations absent/contractions q 3 min
[2024-12-14] MEDS: ROPIVACAINE 0.2% 100 ml 100 ML 12 MG EPIDURAL ×2 (11:15→17:35)
--- NOTE | 2024-12-14 11:27 | PM.ANBPRC ---
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) Hypothyroid ?E03.9 - Hypothyroidism, unspecified (ICD-10) Arthritis ?M19.90 - Unspecified osteoarthritis, unspecified site (ICD-10) GERD (gastroesophageal reflux disease) ?K21.9 - Gastro-esophageal reflux disease without esophagitis (ICD-10) Social History What is your current living situation?: I presently have a place to live In the past 12 months, utilities in danger of being shut off: no In past 12 months, lack of transportation kept you from medical appts, meetings, work, or getting things needed for daily living: no In the past 12 mos, have been you worried that your food would run out before you had money to buy more?: never true In the past 12 mos, the food you bought just didn't last and you didn't have money to buy more?: never true Smoking Status: Never smoker Do you use any of these nicotine containing products: None How often do you have a drink containing alcohol: never AUDIT-C Alcohol total score: 0 Non-prescribed substance use: denies use How often does anyone, including family, friends and others, physically hurt you: never How often does anyone, including family, friends and others, insult or talk down to you: never How often does anyone, including family, friends and others, threaten you with harm: never How often does anyone, including family, friends and others, scream or curse at you: never Meds Home Medications and Allergies Home Medications ?Medication ?Instructions ?Recorded ?Confirmed ?Type docosahexaenoic acid 200 mg 200 mg PO DAILY 05/17/24 12/10/24 History capsule ( DHA) choline 250 mg tablet 250 mg PO DAILY 07/05/24 12/10/24 History aspirin 81 mg chewable tablet 81 mg PO DAILY 07/23/24 12/10/24 History (Aspirin Childrens) magnesium glycinate 100 mg (as 100 mg PO DAILY 08/31/24 12/08/24 History glycinate) tablet (Mag Glycinate) Floradix 10 ml .Route .COMPLEX 10/11/24 12/10/24 History famotidine 20 mg tablet (Pepcid) 20 mg PO DAILY 10/29/24 12/14/24 History ondansetron 4 mg disintegrating 4 mg PO Q8H PRN for 10/29/24 12/08/24 Rx tablet nausea/vomiting #30 tabs loratadine 10 mg tablet (Claritin) 10 mg PO DAILY 11/26/24 12/14/24 History hydroxyzine HCl 25 mg tablet 25 - 50 mg (1 - 2 x 25 mg) PO QHS 12/08/24 12/10/24 Rx PRN anxiety and sleep #30 tabs levothyroxine 150 mcg tablet 150 mcg PO DAILY 12/14/24 12/14/24 History Allergies Allergy/AdvReac Type Severity Reaction Status Date / Time amoxicillin (From Augmentin) AdvReac Vomiting Verified 12/10/24 09:24 clavulanic acid (From AdvReac Vomiting Verified 12/10/24 09:24 Augmentin) Results Labs Labs: Laboratory Results - last 24 hr 12/14/24 09:59 WBC 11.87 H RBC 4.21 Hgb 11.6 L Hct 34.5 MCV 82 MCH 28 MCHC 34 RDW Coeff of Subhash 15.5 Plt Count 220 Neut % (Auto) 76.8 H Lymph % (Auto) 12.0 L [place] % (Auto) 9.9 Eos % (Auto) 0.7 Baso % (Auto) 0.2 Neut # (Auto) 9.10 H Lymph # (Auto) 1.40 [place] # (Auto) 1.20 H Eos # (Auto) 0.10 Baso # (Auto) 0.00 Abs Immat Gran (auto) 0.00 Imm/Tot Granulo (auto) 0.4 Vital Signs Vital Signs: Last Vital Signs Pulse 111 H 12/14/24 11:26 BP 113/65 12/14/24 11:26 Pulse Ox 100 12/14/24 11:08 Anesthesia Procedures Epidural Insertion Patient Location: OB Start Time: 10:45 Stop Time: 11:45 Start Date: 12/14/24 Stop Date: 12/14/24 Reason for Block: procedure for pain Patient Position: sitting Performed By: Evans Pimentel Preanesthetic Checklist: IV checked, risks and benefits discussed, monitors and equipment checked, pre-op evaluation, timeout performed and anesthesia consent Prep: chlorhexidine gluconate Monitoring: blood pressure monitoring, continuous pulse oximetry and heart rate Approach: midline Vertebral Space: lumbar (1-5) Epidural Technique: RUTH saline Needle Type: Tuohy needle Injection Technique: continuous catheter Needle gauge: 17 Needle Length (cm): 10 cm Needle Insertion Depth (cm): 8 Catheter Gauge: 19 Catheter Type: multi-orifice Catheter at skin depth (cm): 18 Test Dose Result: negative and lidocaine 1.5% with epinephrine 1 to 200,000
[2024-12-14] MEDS: LIDOCAINE 2% (PF) 5 ML VIAL EPIDURAL (11:36)
--- NOTE | 2024-12-14 12:50 | P.OBPN_ITS ---
Subjective Date Seen: 12/14/24 Narrative: Rhona is a 39 yo at 39 6/7 admitted for labor pain. She was scheduled for an elective induction tonight, but has been having regular contractions since . No LOF, vaginal bleeding. Good movement. No DAMON or vision changes. Her is here and supportive. She has received her epidural and has been resting comfortably. Feeding Plan:?breast? Plan:?completed, encouraged to place in bag Waterbirth:?declines, planning epidural ? AMTSL: yes? [place] meds/vaccine:?[]? Control PP: partner vasectomy ? ? Specific Issues/Plans G4 P 2 Partner:?Addison Its a boy! H&P completed by EDUARDA Galdamez on 11/26/2024 #AMA: Considering genetic screen with carrier testing and gender Lev 2 recommended: Completed #Obesity, Prepregnancy BMI 36.2 ? Weekly testing starting at 37 weeks, declines? Delivery recommended: elective delivery considered at >39 0/7 weeks.? #Exposed to Parvovirus at 14 weeks Labs: no current infection but past exposure/immunity ? #Hx hypothyroid? TSH 4.88 at NOB, Levo increased to 100mcg daily. Recheck at 16w. TSH 3.53 at 17 weeks, increased to 125 mcg. She has some 25mcg and 50 mcg tabs at home. Will message if she needs additional. TSH 3.94 at 22wks, increased to 137mg. TSH 3.26 at 28 wks. increase to 150mcg TSH 3.14 at 33 wks. Aware goal is to be <3.0, desires to keep same dose; asymptomatic #Difficulty swallowing and right thyroid nodule palpated at NOB: recommended to f/u in 1 year. #anxiety and depression: no current meds, prev propanolol use, may consider vistaril if needed Has some anxiety related to health care # Varicella non-immune Recommend vaccine # Hx HTN in labor and with 2nd Pt declines being on medications Reviewed baby ASA, she may consider taking ? #Heart palpitations at 22.5 wks Zio monitor ordered-negative results Cardiology consult Echo normal #Symptomatic anemia Hgb 9.8, ferritin 4.6 IV iron recommended- completed restart oral iron 2 wks after Hgb: 11.7 (10/29/24) Ferritin 7.2 Objective Exam: Objective: Constitutional: Alert and oriented x3, no distress, coping well Vital signs stable, see nurse documentation Abdomen: gravid, contractions palpate mild to moderate with contractions and soft between Cervix: 4 cm/90%/-1 station/vertex/ BBOW AROM clear fluid with consent NST: 130 bpm/moderate variability/accelerations present/decelerations absent/contractions q 3min Vital Signs: Last Vital Signs Temp 98 F 12/14/24 12:05 Pulse 92 12/14/24 12:41 Resp 18 12/14/24 12:05 BP 97/54 L 12/14/24 12:41 Pulse Ox 100 12/14/24 11:08 Plan Plan: ASSESSMENT:?? 39 at 39 6/7 weeks gestation?? complicated by:??AMA, Obesity, exposure to Parvovirus, depression/anxiety, hypothyroid Labor type: Spontaneous, augmented with AROM, clear, early/active labor?? Category 1 FHR pattern.??? Labor complicated by: none?? GBS negative ?? PLAN:?? 1. Routine intrapartum cares as ordered. Continue with expectant man agement??after AROM with consent 2. Monitoring per policy, continuous 3. continue epidural management 4. Patient encouraged to reposition and ambulate to promote physiologic labor and .?? 5. Anticipate ? ?
--- NOTE | 2024-12-14 14:46 | PM.OBPNL ---
Subjective Date Seen: 12/14/24 Narrative: Rhona is a 39 yo at 39 6/7 admitted for labor pain. Rhona has been comfortable with her epidural and is not complaining of increasing pressure or urge to push. She continues to have a small amount of clear fluid. Good movement. No DAMON or vision changes. Her is here and supportive. Feeding Plan:?breast? Plan:?completed, encouraged to place in bag Waterbirth:?declines, planning epidural ? AMTSL: yes? meds/vaccine:?[]? Control PP: partner vasectomy ? ? Specific Issues/Plans G4 P 2 Partner:?Addison Its a boy! H&P completed by EDUARDA Galdamez on 11/26/2024 #AMA: Considering genetic screen with carrier testing and gender Lev 2 recommended: Completed #Obesity, Prepregnancy BMI 36.2 ? Weekly testing starting at 37 weeks, declines? Delivery recommended: elective delivery considered at >39 0/7 weeks.? #Exposed to Parvovirus at 14 weeks Labs: no current infection but past exposure/immunity ? #Hx hypothyroid? TSH 4.88 at NOB, Levo increased to 100mcg daily. Recheck at 16w. TSH 3.53 at 17 weeks, increased to 125 mcg. She has some 25mcg and 50 mcg tabs at home. Will message if she needs additional. TSH 3.94 at 22wks, increased to 137mg. TSH 3.26 at 28 wks. increase to 150mcg TSH 3.14 at 33 wks. Aware goal is to be <3.0, desires to keep same dose; asymptomatic #Difficulty swallowing and right thyroid nodule palpated at NOB: recommended to f/u in 1 year. #anxiety and depression: no current meds, prev propanolol use, may consider vistaril if needed Has some anxiety related to health care # Varicella non-immune Recommend vaccine # Hx HTN in labor and with 2nd Pt declines being on medications Reviewed baby ASA, she may consider taking ? #Heart palpitations at 22.5 wks Zio monitor ordered-negative results Cardiology consult Echo normal #Symptomatic anemia Hgb 9.8, ferritin 4.6 IV iron recommended- completed restart oral iron 2 wks after Hgb: 11.7 (10/29/24) Ferritin 7.2 Objective Exam: Objective: Constitutional: Alert and oriented x3, no distress, coping well Vital signs stable, see nurse documentation Abdomen: gravid, contractions palpate mild to moderate with contractions and soft between Cervix: 4 cm/90%/0 station/vertex. OP and left asynclitic NST: 130 bpm/moderate variability/accelerations present/decelerations absent except one variable/contractions q 2-3 min Vital Signs: Last Vital Signs Temp 98 F 12/14/24 13:55 Pulse 102 H 12/14/24 14:43 Resp 18 12/14/24 13:55 BP 95/52 L 12/14/24 14:43 Pulse Ox 100 12/14/24 11:08 Plan Plan: ASSESSMENT:?? 39 at 39 6/7 weeks gestation?? complicated by:??AMA, Obesity, exposure to Parvovirus, depression/anxiety, hypothyroid Labor type: Spontaneous, augmented with AROM, clear, early/active labor?? Category 1 FHR pattern.??? Labor complicated by: none?? GBS negative ?? PLAN:?? 1. Routine intrapartum cares as ordered. Continue with expectant management. Rhona will consider pit for augmentation if no changes in cervix soon. 2. Monitoring per policy, continuous 3. continue epidural management 4. Patient encouraged to reposition and ambulate to promote physiologic labor and .?? 5. Anticipate ? ?
[2024-12-14] MEDS: PHENYLEPHRINE 100 MCG/ML SYRINGE IVP (15:17)
[2024-12-14] MEDS: ONDANSETRON 2 MG/ML inj 4 MG IV (16:25)
--- NOTE | 2024-12-14 17:02 | PM.OBPNL ---
Subjective Date Seen: 12/14/24 Narrative: Rhona is a 39 yo at 39 6/7 admitted for labor pain. Rhona has been complaining of vaginal and rectal pain and is confused about why she has not been progressing like she thinks she should. Anesthesia has assessed her and feels the epidural has good levels and the pressure she is feeling is related to the baby. She continues to have a small amount of fluid but mec has been now noted. Her is here and supportive. Feeding Plan:?breast? Plan:?completed, encouraged to place in bag Waterbirth:?declines, planning epidural ? AMTSL: yes? [place] meds/vaccine:?[]? Control PP: partner vasectomy ? ? Specific Issues/Plans G4 P 2 Partner:?Addison Its a boy! H&P completed by EDUARDA Galdamez on 11/26/2024 #AMA: Considering genetic screen with carrier testing and gender Lev 2 recommended: Completed #Obesity, Prepregnancy BMI 36.2 ? Weekly testing starting at 37 weeks, declines? Delivery recommended: elective delivery considered at >39 0/7 weeks.? #Exposed to Parvovirus at 14 weeks Labs: no current infection but past exposure/immunity ? #Hx hypothyroid? TSH 4.88 at NOB, Levo increased to 100mcg daily. Recheck at 16w. TSH 3.53 at 17 weeks, increased to 125 mcg. She has some 25mcg and 50 mcg tabs at home. Will message if she needs additional. TSH 3.94 at 22wks, increased to 137mg. TSH 3.26 at 28 wks. increase to 150mcg TSH 3.14 at 33 wks. Aware goal is to be <3.0, desires to keep same dose; asymptomatic #Difficulty swallowing and right thyroid nodule palpated at NOB: recommended to f/u in 1 year. #anxiety and depression: no current meds, prev propanolol use, may consider vistaril if needed Has some anxiety related to health care # Varicella non-immune Recommend vaccine # Hx HTN in labor and with 2nd Pt declines being on medications Reviewed baby ASA, she may consider taking ? #Heart palpitations at 22.5 wks Zio monitor ordered-negative results Cardiology consult Echo normal #Symptomatic anemia Hgb 9.8, ferritin 4.6 IV iron recommended- completed restart oral iron 2 wks after Hgb: 11.7 (10/29/24) Ferritin 7.2 Objective Exam: Objective: Constitutional: Alert and oriented x3, moderate distress, coping well with support Vital signs stable, see nurse documentation Abdomen: gravid, contractions palpate moderate with contractions and soft between Cervix: 5.5 cm/80%/-1 station/vertex NST: 150 bpm/moderate variability/accelerations present/variable decelerations/contractions q2 min Vital Signs: Last Vital Signs Temp 98.1 F 12/14/24 16:38 Pulse 105 H 12/14/24 16:52 Resp 18 12/14/24 16:38 BP 126/57 L 12/14/24 16:52 Pulse Ox 100 12/14/24 11:08 Plan Plan: ASSESSMENT:?? 39 at 39 6/7 weeks gestation?? complicated by:??AMA, Obesity, exposure to Parvovirus, depression/anxiety, hypothyroid Labor type: Spontaneous, augmented with AROM, clear, early/active labor?? Category 2 FHR pattern.??? Labor complicated by: thin mec?? GBS negative ?? PLAN:?? 1. Routine intrapartum cares as ordered. Continue with expectant management. Did not offer pitocin for now since she is so uncomfortable 2. Monitoring per policy, continuous 3. continue epidural management 4. Patient encouraged to reposition and ambulate to promote physiologic labor and .?? 5. Anticipate ?
--- NOTE | 2024-12-14 18:17 | AC.NBPDANNP1 ---
Provider Attendance Delivery Provider Attend Delivery Date Seen: 12/14/24 Delivery Attendance Summary Provider attended delivery at request of: Geetha Ireland
[2024-12-14] MEDS: OXYTOCIN 30 unit/500 ML in NS 30 UNIT/500 ML BAG 300 UNIT IVPB (18:20)
--- NOTE | 2024-12-14 18:41 | W.PM.VAGDE_ITS ---
OB Procedure Vag Delivery Mother Details Mother Details: The patient is a 39 year-old, 4, Para 2, admitted on 12/14/24 at 39 6/7 weeks gestation. Admission Date: 12/14/24 Additional Details Amniotic Membrane Status: AROM Amniotic Membrane Rupture Date: 12/14/24 Amniotic Membrane Rupture Time: 12:46 Amniotic Membrane Fluid Description: Meconium Stained Analgesia/Anesthesia Type: Epidural and Nitrous Oxide Waterbirth: No Pitcoin: No Intrapartal Events: Mod/Heavy Meconium Fluid Delivery augmentation: rupture of membranes Labor Onset: 07:00 Complete: 17:46 Pushin:48 Heart: heart tones were cat 2 persistently since 1708, with some improvement with position changes, but not for long. Moderate variability though out. Good progress with descent and dilation, so encouragement to push as soon as she was complete to hasten delivery. Peds was present for the . Delivery Details Delivery Date: 12/14/24 Delivery Time: 18:19 Route of delivery: Gender: Male Viability: Alive; Heart Rate Present Position at Delivery: OA Delivery Details: Patient was admitted for active labor and progressed slowly with AROM augmentation at 1246 with mec stained fluid later noted. Patient struggled with rectal and vaginal pain and used nitrous to supplement her epidural. She was complete at 1746 and pushing at 1748. of a viable male at 1819 in Semi- fowlers wtih leg rests bilaterally. Vertex delivered OA. No nuchal cord or shoulder dystocia. Body delivered easily and without incident. Mouth and nose suctioned and vigorous cry with stimulation so infant passed to mothers abdomen with a vigorous cry. Cord was clamped and cut at > 5 minutes. APGARS were 8 at one minute and 9 at five minutes respectively. Mouth was bulb suctioned. Intact placenta with a 3 vessel cord delivered spontaneously at 1829. Fundus firm. 1stidentified and hemostatic, not repaired.. EBL 350 cc. Mother and baby stable; mother plans to breastfeed. weight pending.? 1 Minute Interval Total Score: 8 5 Minute Interval Total Score: 9 Additional Details Shoulder Dystocia: No Placenta Delivery Time: 18:29 Placental Delivery Description: Spontaneous Procedure Done: Global Blood Loss: 350 Laceration: Perineal - 1st Degree (hemostatic not repaired) Blood Loss Measurement Type: EBL Bakri Used: No Sponge/Need Count Correct: Yes Cord Vessel Description: 3 Vessels and Clamped/Cut Event Summary Status: Mother and infant were stable after delivery. Disposition: floor
[2024-12-14 19:39] LABS: Hematocrit 33.6 % (33.0-51.0); Hemoglobin* 11.3 gm/dL (12.0-16.0); Mean Corpuscular HGB Conc 34 gm/dL (32-36); Mean Corpuscular Hemoglobin 28 pg (26-34); Mean Corpuscular Volume 83 fL (80-100); Platelet Count* 211 K/uL (140-440); Red Blood Count 4.04 m/uL (4.00-5.20); White Blood Count* 20.49 K/uL (4.50-11.00)
[2024-12-14 19:52] LABS: Slide Review Reflex No
[2024-12-14 20:01] LABS: Total Protein Urine 41 mg/dL
[2024-12-14 20:03] LABS: Creatinine Urine 97.5 mg/dL; Protein Creatinine Ratio Urine 0.42 (0-0.19)
[2024-12-14 20:12] LABS: Alanine Aminotransferase* 21 U/L (4-35); Aspartate Amino Transferase* 30 U/L (12-35); Blood Urea Nitrogen* 7 mg/dL (5-24); Creatinine* 0.6 mg/dL (0.5-1.5); Est. Creatinine Clearance* 113.27; Estimated Glomerular Filt Rate 117 ml/min
[2024-12-15 00:53] VITALS: BP 128/80; PULSE 95; RESP 18; TEMP 36.6; O2SAT 98
[2024-12-15 03:00] VITALS: BP 124/73; PULSE 95; RESP 18; TEMP 37; O2SAT 98
[2024-12-15 03:48] VITALS: BP 124/73; PULSE 95; RESP 18; TEMP 37; O2SAT 98
[2024-12-15 06:09] LABS: Hemoglobin* 9.9 gm/dL (12.0-16.0)
[2024-12-15] MEDS: LEVOTHYROXINE 100 MCG TABLET PO (06:36)
--- NOTE | 2024-12-15 06:44 | PC.NURSE ---
Shift note: Patient is pleasant, alert and oriented and cooperates with treatment and care. Ambulated several times to BR. No pain reported. Pad had some lochial without clotting or actual bleeding. Vitally stable. Babyand
--- NOTE | 2024-12-15 06:50 | PC.NURSE ---
Shift note: Patient is pleasant, alert and oriented and cooperates with treatment and care. Ambulated several times to BR. No pain reported. Pad had some lochial without clotting or actual bleeding. Vitally stable. Baby and mother had adequate sleep. The last blood sugar was 69 and alternative blood sugar check before feeding initiated.
[2024-12-15 09:00] VITALS: BP 119/76; PULSE 93; RESP 18; TEMP 36.6; O2SAT 97
--- NOTE | 2024-12-15 09:54 | P.OBPN_ITS ---
OB - PN:Subj Subjective Date Seen: 12/15/24 Narrative: Rhona is a 39 y.o. G 4 P 3 who was admitted to [facility] for spontaneous onset of labor. ?She had a NVD that was uncomplicated. Her was complicated by newly diagnosed pre-eclampsia without severe features. Her blood pressures have been normotensive since recovery. The patient feels well. ?The pain is well controlled with current medications. ?She has no new complaints. ?She is breast feeding and reports things are going well. the patient has done well.? Vitals have been stable.? She has remained afebrile.? Has a good appetite, is tolerating a general diet. ?She is voiding without difficulty.? She is passing gas and has not had a bowel movement.? She is ambulating and denies any dizziness.? Has small amount of rubra lochia. She was very sleepy at time of rounding this morning. Problems: pre-e without SF, Anemia OB - PN: Obj Exam Physical Exam: Vital signs: Temp Pulse Resp BP Pulse Ox O2 Del Method 97.8 F 93 18 119/76 97 Room Air 12/15/24 09:00 12/15/24 09:00 12/15/24 09:00 12/15/24 09:00 12/15/24 09:00 12/15/24 09:00 Narrative: GENERAL APPEARANCE:? normal affect, alert, no distress MOOD:? appropriate CHEST:? clear to auscultation HEART:? regular rate and rhythm ABDOMEN:? soft, non-tender the uterine fundus is At Umbilicus, Midline and is appropriate for the stage of recovery. PERINEUM:? mild edema of the perineum, there is a Perineal Laceration,?1st degree, that is healing well. EXTREMITIES:? normal and no edema OB - PN: Obj Data Labs Labs: Laboratory Results - last 24 hr 12/14/24 12/14/24 12/14/24 09:59 19:33 Unknown WBC 11.87 H 20.49 H RBC 4.21 4.04 Hgb 11.6 L 11.3 L Hct 34.5 33.6 MCV 82 83 MCH 28 28 MCHC 34 34 RDW Coeff of Subhash 15.5 Plt Count 220 211 Neut % (Auto) 76.8 H Lymph % (Auto) 12.0 L [place] % (Auto) 9.9 Eos % (Auto) 0.7 Baso % (Auto) 0.2 Neut # (Auto) 9.10 H Lymph # (Auto) 1.40 [place] # (Auto) 1.20 H Eos # (Auto) 0.10 Baso # (Auto) 0.00 Abs Immat Gran (auto) 0.00 Imm/Tot Granulo (auto) 0.4 BUN 7 Creatinine 0.6 Estimated Creat Clear 113.27 Estimated GFR 117 AST 30 ALT 21 Urine Creatinine 97.5 Protein/Creatinin Ratio 0.42 H Urine Total Protein 41 12/15/24 05:52 WBC RBC Hgb 9.9 L Hct MCV MCH MCHC RDW Coeff of Subhash Plt Count Neut % (Auto) Lymph % (Auto) [place] % (Auto) Eos % (Auto) Baso % (Auto) Neut # (Auto) Lymph # (Auto) [place] # (Auto) Eos # (Auto) Baso # (Auto) Abs Immat Gran (auto) Imm/Tot Granulo (auto) BUN Creatinine Estimated Creat Clear Estimated GFR AST ALT Urine Creatinine Protein/Creatinin Ratio Urine Total Protein OB - PN: A/P Delivery Assessment and Plan (1) Hypothyroid in , antepartum: Problem details: U/S on 05/18/24 noted bilateral thyroid nodules, no FNA. F/U in 1 year. Status: Acute (2) Anxiety: Status: Acute (3) care and examination immediately after delivery: Status: Acute (4) Lactating mother: Status: Acute Plan day: 1 Plan: routine care Comments: Routine care , may see if needed? Hgb 9.9. Iron supplement ordered orally every other day? Pre-E diagnosed by elevated BP greater than 4 hours apart? Labs WNL Continue to monitor BP Anticipate discharge home tomorrow
[2024-12-15] MEDS: IBUPROFEN 600 MG TABLET PO (10:14)
[2024-12-15] MEDS: DOCUSATE SODIUM 100 MG CAPSULE PO (10:15)
[2024-12-15 12:00] VITALS: BP 120/73; PULSE 100; RESP 20; TEMP 36.7
--- NOTE | 2024-12-15 12:18 | P.DS_ITS ---
DS: Providers Provider Date Seen: 12/15/24 Date of admission: 12/14/24 09:37 Primary care physician: Ruby Pickering DO Admitting Clinician: Lori Velasquez CNM Attending Physician on discharge: Selin Morton CNM DS: Diagnosis Discharge Diagnosis (1) care and examination immediately after delivery: Status: Acute (2) Lactating mother: Status: Acute (3) Anxiety: Status: Acute (4) Hypothyroid in , antepartum: Status: Acute Problem details: U/S on 05/18/24 noted bilateral thyroid nodules, no FNA. F/U in 1 year. Pre- dose of 88 mcg (5) Anemia affecting : Status: Acute Exam Narrative: Exam Narrative: See previous note Const: Vital Signs, click to edit/add: Vital Signs - 24 hr 12/14/24 12:26 12/14/24 12:41 12/14/24 12:56 Temperature Pulse Rate 89 92 Pulse Rate [Right Pulse Oximeter] Respiratory Rate Blood Pressure 90/52 L 97/54 L 104/58 L Blood Pressure [Le ft Arm] Pulse Oximetry Oxygen Delivery Me thod 12/14/24 13:11 12/14/24 13:26 12/14/24 13:41 Temperature Pulse Rate 95 92 90 Pulse Rate [Right Pulse Oximeter] Respiratory Rate Blood Pressure 100/51 L 104/53 L 114/54 L Blood Pressure [Le ft Arm] Pulse Oximetry Oxygen Delivery Me thod 12/14/24 13:55 12/14/24 13:57 12/14/24 14:12 Temperature 98 F Pulse Rate 92 101 H Pulse Rate [Right Pulse Oximeter] Respiratory Rate 18 Blood Pressure 112/53 L 108/54 L Blood Pressure [Le ft Arm] Pulse Oximetry Oxygen Delivery Me thod 12/14/24 14:26 12/14/24 14:43 12/14/24 14:56 Temperature Pulse Rate 100 102 H 88 Pulse Rate [Right Pulse Oximeter] Respiratory Rate Blood Pressure 92/50 L 95/52 L 98/55 L Blood Pressure [Le ft Arm] Pulse Oximetry Oxygen Delivery Me thod 12/14/24 15:11 12/14/24 15:22 12/14/24 15:28 Temperature 98.2 F Pulse Rate 102 H 97 Pulse Rate [Right Pulse Oximeter] Respiratory Rate 18 Blood Pressure 89/46 L 114/54 L Blood Pressure [Le ft Arm] Pulse Oximetry Oxygen Delivery Ri thod 12/14/24 15:41 12/14/24 15:57 12/14/24 16:38 Temperature Pulse Rate 104 H 96 116 H Pulse Rate [Right Pulse Oximeter] Respiratory Rate Blood Pressure 118/62 104/61 139/97 H Blood Pressure [Le ft Arm] Pulse Oximetry Oxygen Delivery Ri thod 12/14/24 16:38 12/14/24 16:52 12/14/24 17:29 Temperature 98.1 F 98.5 F Pulse Rate 105 H Pulse Rate [Right Pulse Oximeter] Respiratory Rate 18 18 Blood Pressure 126/57 L Blood Pressure [Le ft Arm] Pulse Oximetry Oxygen Delivery Ri thod 12/14/24 18:38 12/14/24 18:47 12/14/24 18:50 Temperature Pulse Rate 120 H 105 H 107 H Pulse Rate [Right Pulse Oximeter] Respiratory Rate Blood Pressure 154/65 H 143/67 H 134/63 Blood Pressure [Le ft Arm] [facility] 19[facility]05 12/14/24 19:20 12/14/24 19:35 Temperature Pulse Rate 104 H 103 H 107 H Pulse Rate [Right Pulse Oximeter] Respiratory Rate Blood Pressure 146/64 H 143/65 H 145/69 H Blood Pressure [Le ft Arm] Pulse [facility]ximetry [facility] 19:35 12/14/24 19:50 12/14/24 19:50 Temperature Pulse Rate 115 H Pulse Rate [Right Pulse Oximeter] Respiratory Rate 18 18 Blood Pressure 139/68 Blood Pressure [Le ft Arm] Pulse Oximetry Oxygen Delivery Ri thod 12/14/24 20:05 12/14/24 20:05 12/14/24 20:16 Temperature 98.9 F Pulse Rate 123 H Pulse Rate [Right Pulse Oximeter] Respiratory Rate 18 18 Blood Pressure 137/71 Blood Pressure [Le ft Arm] Pulse Oximetry Oxygen Delivery Ri thod 12/14/24 20:20 12/14/24 20:20 12/15/24 00:53 Temperature 98 F Pulse Rate 115 H Pulse Rate [Right Pulse Oximeter] 95 Respiratory Rate 18 18 Blood Pressure 138/65 Blood Pressure [Le ft Arm] 128/80 Pulse Oximetry 98 Oxygen Delivery Me thod 12/15/24 03:00 12/15/24 03:48 12/15/24 09:00 Temperature 98.6 F 98.6 F 97.8 F Pulse Rate Pulse Rate [Right Pulse Oximeter] 95 95 93 Respiratory Rate 18 18 18 Blood Pressure Blood Pressure [Le ft Arm] 124/73 124/73 119/76 Pulse Oximetry 98 98 97 Oxygen Delivery Me thod Room Air Room Air Room Air 12/15/24 09:00 Temperature Pulse Rate Pulse Rate [Right Pulse Oximeter] Respiratory Rate Blood Pressure Blood Pressure [Le ft Arm] Pulse Oximetry Oxygen Delivery Me thod Room Air OB - DS: Summary Hospital Course Hospital Course: See previous note from today. Patient has now requested d/c later this evening after 24 hours. Stable for discharge. Discharge home with baby.? Follow up in 2 weeks and 6 weeks.? , may see if needed? Hgb 9.9. Iron supplement ordered orally every other day, plans to start at home? Pre-E diagnosed by elevated BP greater than 4 hours apart? Labs WNL Discharge home with BP cuff if does not already have one? Follow up in 3-5 days? Call for signs/symptoms of preeclampsia? Hypothyroid. Return to pre- dose of 88 mcg For pain control of perineum, breast and pelvic pain, take 600 mg Ibuprofen every 6 hours as needed by mouth or 1000 mg acetaminophen (Tylenol) every 6 hours by mouth as needed. You can alternate these so you are taking something every 3 hours as needed. A heating pad can also be used for your abdomen or breasts. You may also take docusate sodium up to twice daily to soften your stools and help to prevent constipation. You may wean off of it when your stools return to normal.? Peripartum Data Laceration description: Perineal - 1st Degree complications: none [place] Infant Gender: Male Discharge Plan: Home Status at Discharge Functional status at discharge: independent ambulation Overall status at discharge: patient is progressing back to baseline Time Spent with Patient Time attestation: Total time spent providing and/or coordinating discharge services: Time spent: Less than 30 minutes Discharge Plan Discharge Disposition: Home, Self-Care Date of Admission: 12/14/24 09:37 Attending Provider on Discharge: Selin Morton Consulting Providers: Selin Morton Antoinette L Primary Care Provider: Ruby Pickering Condition: Stable Anticipated Discharge Date/Time: 12/15/24 19:00 Discharge Medications: New levothyroxine 88 mcg tablet 88 mcg PO DAILY Qty: 60 0RF ferrous sulfate 325 mg (65 mg iron) Tablet 325 mg PO Q OTHER DAY Qty: 90 0RF docusate sodium 100 mg Capsule 100 mg PO DAILY Qty: 90 0RF ibuprofen 600 mg Tablet 600 mg PO Q6H PRNQty: 60 0RF acetaminophen 500 mg Tablet 1,000 mg PO Q6H PRNQty: 0 0RF Continued Floradix liquid 10 ml .ROUTE .COMPLEX Patient Comments: 10mg of ferrous gluconate Rx Instructions: 10 mL; loratadine [Claritin] 10 mg tablet 10 mg PO DAILY DHA 200 mg capsule 200 mg PO DAILY choline 250 mg tablet 250 mg PO DAILY famotidine [Pepcid] 20 mg tablet 20 mg PO DAILY ondansetron 4 mg tablet,disintegrating 4 mg PO Q8H PRN (Reason: for nausea/vomiting) Qty: 30 0RF hydroxyzine HCl 25 mg tablet 25 - 50 mg PO QHS PRN (Reason: anxiety and sleep) Qty: 30 0RF Rx Instructions: May take 1 or 2 tablets at bedtime as needed for sleep Mag Glycinate 100 mg tablet 100 mg PO DAILY Discontinued aspirin [Aspirin Childrens] 81 mg tablet,chewable 81 mg PO DAILY levothyroxine 150 mcg tablet 150 mcg PO DAILY Discharge Orders: Discharge Order (Routine); Ordered 12/15/24 Ordered By: Selin Morton Patient Education: OB Over the Counter Medication Information, OB Vaginal/Breast Feeding Additional Instructions: Discharge instructions were reviewed with the patient including signs and symptoms of infection and home going medications Nothing vaginally for 6 weeks: no tampons or intercourse Off Work or School for 6 weeks Follow [facility] for a BP check?3-5 days * Call with BP greater than or equal to 160/110 or sustained BP of 140/90 on multiple checks * Severe headache that doesn't improve after taking medications * Changes in vision, including temporary loss of vision, blurred vision, and/or light sensitivity * Upper abdominal pain (usually under ribs on the right side) 2-week visit: discuss infant feeding concerns, review control options and screen for anxiety/depression. 6-week visit for an annual exam. consultation services are available to all mothers and babies for the first year after delivery.? To make an appointment, please call [phone]. Activity Level: Activity as Tolerated and No strenuous activity Discharge Diet: Regular Follow Up Appointments: [facility] [Provider Group] Forms: [employer] Info Instructions
--- NOTE | 2024-12-15 13:05 | PM.ANPOST ---
Post Anesthesia Note Post Anesthesia Note Patient seen: Inpatient Respiratory Status: adequate Cardiovascular Status: adequate Mental Status: baseline Pain: adequate Temp: baseline Anesthetic awareness: N/A Complications: none Follow care: none
[2024-12-15 14:08] LABS: Rapid Plasma Reagin (RPR) Non Reactive (Non Reactive)
[2024-12-15 16:07] VITALS: BP 107/72; PULSE 93; RESP 16; TEMP 36.7; O2SAT 96
== END 2024-12-15 20:10 | disposition home or self-care (01) | DRG 560 ==
PROVIDERS: Admitting Provider Midwife; PCP Family Medicine; Visit Provider Midwife
DX: O99.284 Endocrine, nutritional and metabolic diseases complicating childbirth (principal); E03.9 Hypothyroidism, unspecified; Z3A.39 39 weeks gestation of pregnancy; Z37.0 Single live birth; O99.344 Other mental disorders complicating childbirth; F41.9 Anxiety disorder, unspecified; O99.02 Anemia complicating childbirth; D64.9 Anemia, unspecified; O99.214 Obesity complicating childbirth; E66.9 Obesity, unspecified; O76 Abnormality in fetal heart rate and rhythm complicating labor and delivery; O14.05 Mild to moderate pre-eclampsia, complicating the puerperium; O77.0 Labor and delivery complicated by meconium in amniotic fluid
CPT/HCPCS: 01967; 36415; 82565; 82570; 84156; 84450; 84460; 84520; 85018; 85025; 85027; 86592; A9270; J2405; J2795; J7120

== ENCOUNTER 2025-01-24 13:03 | Outpatient (CLI) | payer BC, SELFPAY | END 2025-01-24 13:04 | disposition home or self-care (01) | PROVIDERS: PCP Family Medicine; Visit Provider Midwife | DX: E03.9 Hypothyroidism, unspecified (principal); E04.1 Nontoxic single thyroid nodule | CPT/HCPCS: 84443; 86376; 86800 ==